=== PATIENT | female | born 1990 | race American Indian/Alaskan Native ===

== ENCOUNTER 2016-07-17 06:53 | Emergency (ER) | payer MEDICAID ==
[2016-07-17 07:01] VITALS: RESP 20; O2SAT 98
[2016-07-17] MEDS ORDERED: Naproxen 550 mg Tab PO STA (07:24)
[2016-07-17] MEDS ORDERED: Naproxen 550 mg Tab PO ONE (07:28)
--- NOTE | 2016-07-17 07:51 | C.PDOC ---
History Of Present Illness 25 y/o female presents to the ED complaining of left shoulder pain since yesterday. She reports a "popping sensation" with movement and states the pain also worsens with movement. 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 However she denies heavy lifting. She also denies falls/injury, chest pain, shortness of breath, rash, fever, sensory changes. Patient has not taken anything for pain yet. Time Seen by Provider: 07/17/16 07:13 Chief Complaint (Nursing): Upper Extremity Problem/Injury History Per: Patient History/Exam Limitations: no limitations Onset/Duration Of Symptoms: Days (1), Persistent Current Symptoms Are (Timing): Still Present Quality: "Pain" Severity: Mild Exacerbating Factor(s): Movement Past Medical History Reviewed: Historical Data, Nursing Documentation, Vital Signs Vital Signs: Last Vital Signs Temp 97.5 F L 07/17/16 08:02 Pulse 78 07/17/16 08:02 Resp 20 07/17/16 08:02 BP 135/80 07/17/16 08:02 Pulse Ox 98 07/17/16 09:22 - Medical History PMH: Anxiety, Bipolar Disorder, Depression, Diabetes Surgical History: No Surg Hx - [facility] Procedures INJECT/INFUSE NEC (12/30/13) Family History: States: Diabetes (Grandmother) - Social History Hx Tobacco Use: No Hx Alcohol Use: No Hx Substance Use: No - Immunization History Hx Tetanus Toxoid Vaccination: No Hx Influenza Vaccination: No Hx Pneumococcal Vaccination: No Review Of Systems Except As Marked, All Systems Reviewed And Found Negative. Constitutional: Negative for: Fever, Sweats Cardiovascular: Negative for: Chest Pain Respiratory: Negative for: Shortness of Breath Gastrointestinal: Negative for: Nausea Musculoskeletal: Positive for: Shoulder Pain (left) Skin: Negative for: Rash Neurological: Negative for: Weakness, Numbness Physical Exam - Physical Exam Appears: Well, Non-toxic, No Acute Distress, Other (comfortable) Skin: Normal Color, Warm, Dry, No Rash, No Ecchymosis Head: Normacephalic Oral Mucosa: Moist Neck: Normal ROM, No Other (tenderness) Chest: Symmetrical Cardiovascular: Rhythm Regular Respiratory: Normal Breath Sounds, No Rales, No Rhonchi, No Wheezing Back: Normal Inspection, No Other (tenderness) Extremity: Normal ROM, Tenderness (mild TTP at left humeral head and left anterior shoulder), Capillary Refill (< 2 seconds all digits), No Deformity, No Swelling Pulses: Left Radial: Normal, Right Radial: Normal Neurological/Psych: Oriented x3 Gait: Steady ED Course And Treatment O2 Sat by Pulse Oximetry: 98 (ra) Pulse Ox Interpretation: Normal - Other Rad X-Ray, Left Shoulder X-Ray: Interpreted by Me, Viewed By Me Interpretation: no fractures or dislocations Progress Note: Left Shoulder X-Ray ordered and reviewed. Patient given PO Naprosyn for pain. Xray of shoulder (-) for fractures/dislocations. Patint placed in shoulder sling, and instructed to follow up with orthopedics within 1 week for further evaluation. Rx for Naprosyn given. She understands she should return to ED if symptoms worsen. Reevaluation Time: 07:55 Reassessment Condition: Improved (Patient reports improvement of pain.) Disposition Counseled Patient/Family Regarding: Studies Performed, Diagnosis, Need For Followup, Rx Given - Disposition Referrals: Sravani Hays MD [Staff Provider] - [facility] [Outside] Disposition: HOME/ ROUTINE Disposition Time: 07:55 Condition: STABLE Additional Instructions: FOLLOW UP WITH ORTHOPEDICS WITHIN 1 WEEK USE MEDICATION FOR PAIN NEEDED REST SHOULDER WHEN POSSIBLE RETURN TO ER IF SYMPTOMS WORSEN Instructions: Shoulder Sprain (ED) Forms: Work Excuse Print Language: HUNGARIAN - Clinical Impression Clinical Impression: Shoulder pain, left, Soft tissue injury of shoulder - Scribe Statement The provider has reviewed the documentation as recorded by the Scribe (Shaneka Ashley) Provider Attestation: All medical record entries made by the Scribe were at my direction and personally dictated by me. I have reviewed the chart and agree that the record accurately reflects my personal performance of the history, physical exam, medical decision making, and the department course for this patient. I have also personally directed, reviewed, and agree with the discharge instructions and disposition.
[2016-07-17 08:03] VITALS: BP 135/80; PULSE 78; TEMP 97.5
--- NOTE | 2016-07-17 11:18 | RAD ---
PROCEDURE: Radiographs of the Left Shoulder HISTORY: left shoulder pain COMPARISON: None available. FINDINGS: BONES: No acute displaced fracture. The distal clavicle and underlying ribs appear intact. JOINTS: No acute dislocation. SOFT TISSUES: Soft tissues appear unremarkable. No evidence of radiopaque foreign body. IMPRESSION: No acute displaced fracture or dislocation evident. If symptoms persist or if there is continued clinical concern, x-ray follow-up in 7-10 days should be considered.
== END 2016-07-17 08:02 | disposition home or self-care (01) ==
LOC: C.ER 06:53
DX: S49.92XA Unspecified injury of left shoulder and upper arm, initial encounter (principal); X50.3XXA Overexertion from repetitive movements, initial encounter; Y93.89 Activity, other specified; Y92.89 Other specified places as the place of occurrence of the external cause

== ENCOUNTER 2016-07-22 13:44 | Emergency (ER) | payer MEDICAID ==
[2016-07-22 13:53] VITALS: RESP 20
--- NOTE | 2016-07-22 15:02 | C.PDOC ---
History Of Present Illness 25 y/o female presents to ED with complaints of fever, body aches, nausea, and diarrhea since yesterday. Patient reports 3 episodes of watery diarrhea this morning. Patient also reports persistent cough. Denies headache, dizziness, SOB , vomiting, recent travel, or sick contacts. Time Seen by Provider: 07/22/16 14:20 Chief Complaint (Nursing): Flu-like Symptoms History Per: Patient History/Exam Limitations: no limitations Onset/Duration Of Symptoms: Days Current Symptoms Are (Timing): Still Present Location Of Pain: Diffuse Myalgias Sick Contacts (Context): None Associated Symptoms: Fever, Cough, Myalgias, Nausea, Diarrhea. denies: Chills, Neck Pain, Vomiting Ear Symptoms: Bilateral: None Recent travel outside of the [place]: No Past Medical History Reviewed: Historical Data, Nursing Documentation, Vital Signs Vital Signs: Last Vital Signs Temp 100.8 F H 07/22/16 13:52 Pulse 114 H 07/22/16 13:52 Resp 20 07/22/16 13:52 BP 127/77 07/22/16 13:52 Pulse Ox 100 07/22/16 15:06 - Medical History PMH: Anxiety, Bipolar Disorder, Depression, Diabetes - [facility] Procedures INJECT/INFUSE NEC (12/30/13) Family History: States: Diabetes (Grandmother) - Social History Hx Tobacco Use: No Hx Alcohol Use: No Hx Substance Use: No - Immunization History Hx Tetanus Toxoid Vaccination: No Hx Influenza Vaccination: No Hx Pneumococcal Vaccination: No Review Of Systems Except As Marked, All Systems Reviewed And Found Negative. Constitutional: Positive for: Fever, Malaise. Negative for: Chills ENT: Negative for: Throat Pain Respiratory: Positive for: Cough Gastrointestinal: Positive for: Nausea, Diarrhea. Negative for: Vomiting, Abdominal Pain Musculoskeletal: Negative for: Neck Pain Skin: Negative for: Rash Neurological: Negative for: Headache, Dizziness Physical Exam - Physical Exam Appears: Non-toxic, No Acute Distress Skin: Normal Color, Warm, Dry Head: Atraumatic, Normacephalic Eye(s): bilateral: Normal Inspection, PERRL, EOMI Ear(s): Bilateral: Normal Nose: Normal Oral Mucosa: Moist Throat: Normal, No Erythema, No Exudate, No Drooling Neck: Supple Chest: Symmetrical Cardiovascular: Rhythm Regular, No Murmur Respiratory: Normal Breath Sounds, No Rales, No Rhonchi, No Wheezing Gastrointestinal/Abdominal: Soft, No Tenderness, No Guarding, No Rebound Back: Normal Inspection Extremity: Normal ROM, Capillary Refill (< 2 sec. ) Neurological/Psych: Oriented x3, Normal Speech, Normal Cognition ED Course And Treatment O2 Sat by Pulse Oximetry: 100 (RA) Pulse Ox Interpretation: Normal Progress Note: Treated with Motrin and Prednisone. Flu swab test ordered and reviewed. On reassessment, patient is resting comfortably, and is in no acute distress. Patient instructed to follow up with clinic/PMD within 1-2 days. Advised to taked medications as directed. Disposition - Disposition Referrals: [facility] [Outside] Disposition: HOME/ ROUTINE Disposition Time: 15:39 Condition: GOOD Additional Instructions: Follow up with the medical doctor within 1-2 days. Return if worsened. 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 - Scribe Statement The provider has reviewed the documentation as recorded by the Yan Mcduffie Provider Scribe Attestation: All medical record entries made by the Scribe were at my direction and personally dictated by me. I have reviewed the chart and agree that the record accurately reflects my personal performance of the history, physical exam, medical decision making, and the department course for this patient. I have also personally directed, reviewed, and agree with the discharge instructions and disposition.
[2016-07-22 15:57] VITALS: BP 111/76; PULSE 127; TEMP 99.7
[2016-07-23 23:18] VITALS: O2SAT 100
== END 2016-07-22 15:56 | disposition home or self-care (01) ==
LOC: C.ER 13:44
DX: J11.1 Influenza due to unidentified influenza virus with other respiratory manifestations (principal)

== ENCOUNTER 2016-08-17 13:40 | Emergency (ER) | payer MEDICAID ==
[2016-08-17 14:02] VITALS: TEMP 98.5; O2SAT 100
[2016-08-17] MEDS ORDERED: (Novolin R) Insulin Human Regular 100 units/ml vial SC STA (14:25)
[2016-08-17] MEDS ORDERED: Sodium Chloride 0.9% 1,000 ML IV ONE (14:25)
[2016-08-17 14:40] LABS: BASO % 1.1 % (0.0-2.0); EOS # 0.1 K/uL (0.0-0.7); EOS % 1.8 % (0.0-4.0); HEMATOCRIT 39.4 % (34.0-47.0); LYMPH # 1.5 K/uL (1.0-4.3); LYMPH % 35.4 % (20.0-40.0); MEAN CELL VOLUME 88.7 fL (81.0-99.0); MEAN CORPUSCULAR HEMOGLOBIN 30.7 pg (27.0-31.0); MEAN CORPUSCULAR HGB CONC 34.6 g/dL (33.0-37.0); MEAN PLATELET VOLUME 9.6 fL (7.2-11.7); MONO # 0.3 K/uL (0.0-0.8); MONO % 6.8 % (0.0-10.0); NRBC % 0.1 % (0.0-2.0); RED CELL DISTRIBUTION WIDTH 13.2 % (11.5-14.5); WHITE BLOOD COUNT 4.3 K/uL (4.8-10.8)
[2016-08-17 14:52] LABS: CHLORIDE 94 mmol/L (98-107)
[2016-08-17 14:53] LABS: POTASSIUM 3.8 mmol/L (3.6-5.2); SODIUM 134 mmol/L (132-148)
[2016-08-17 14:54] LABS: BILIRUBIN,TOTAL 0.9 mg/dL (0.2-1.3); GFR AFRICAN-AMERICAN > 60
[2016-08-17 14:55] LABS: ALB/GLOB RATIO 1.5 (1.0-2.1); ALKALINE PHOSPHATASE 99 U/L (38-126); ALT/SGPT 26 U/L (9-52); AST/SGOT 15 U/L (14-36); BLOOD UREA NITROGEN 6 mg/dL (7-17); CALCIUM 9.3 mg/dl (8.6-10.4); CARBON DIOXIDE 24 mmol/L (22-30); GLUCOSE,RANDOM 388 mg/dL (65-105); TOTAL PROTEIN 7.4 g/dL (6.3-8.3)
[2016-08-17 14:56] LABS: RBC URINE 2 /hpf (0-3); URINE BILIRUBIN NEGATIVE (NEGATIVE); URINE BLOOD NEGATIVE (NEGATIVE); URINE COLOR Yellow (YELLOW); URINE GLUCOSE (UA) 3+ mg/dL (Normal); URINE KETONE 2+ mg/dL (NEGATIVE); URINE LEUKOCYTE ESTERASE NEG Leu/uL (Negative); URINE PROTEIN NEGATIVE (NEGATIVE); URINE UROBILINOGEN NORMAL mg/dL (0.2-1.0); WBC URINE 3 /hpf (0-5)
[2016-08-17 16:05] VITALS: BP 120/73
--- NOTE | 2016-08-17 16:27 | C.PDOC ---
History Of Present Illness 26 year old patient, with a past medical history of anxiety, bipolar disorder, depression, and diabetes, presents to the ED complaining of increased thirst, urinary frequency and blurry vision for the past several days. Patient states she feels more tired than usual. She was taking insulin for her diabetes. For the past several months, her PMD told her to stop taking Insulin and didn't start her on any new medications. Patient reports she has not checked her blood pressure since she stopped taking insulin. She visited her PMD yesterday and only had blood work done. Patient denies chest pain, shortness of breath, dysuria, or fever. Time Seen by Provider: 08/17/16 14:17 Chief Complaint (Nursing): Dizziness/Lightheaded History Per: Patient History/Exam Limitations: no limitations Onset/Duration Of Symptoms: Days (several) Current Symptoms Are (Timing): Still Present Severity: Mild Pain Scale Rating Of: 3 Current Diabetic Medications: None Causative (Exacerbating) Factor(s): Other Associated Infectious Symptoms: Urinary Frequency Recent travel outside of the [place]: No Past Medical History Reviewed: Historical Data, Nursing Documentation, Vital Signs Vital Signs: Last Vital Signs Temp 98.5 F 08/17/16 16:45 Pulse 71 08/17/16 16:45 Resp 18 08/17/16 16:45 BP 120/73 08/17/16 16:45 Pulse Ox 100 08/17/16 17:53 - Medical History PMH: Anxiety, Bipolar Disorder, Depression, Diabetes - [facility] Procedures INJECT/INFUSE NEC (12/30/13) Family History: States: Diabetes (Grandmother) - Social History Hx Tobacco Use: No Hx Alcohol Use: No Hx Substance Use: No - Immunization History Hx Tetanus Toxoid Vaccination: No Hx Influenza Vaccination: No Hx Pneumococcal Vaccination: No Review Of Systems Except As Marked, All Systems Reviewed And Found Negative. Constitutional: Negative for: Fever Eyes: Positive for: Vision Change (blurry) ENT: Positive for: Other (increased thirst) Cardiovascular: Negative for: Chest Pain Respiratory: Negative for: Shortness of Breath Genitourinary: Positive for: Frequency. Negative for: Dysuria Physical Exam - Physical Exam Appears: Non-toxic, No Acute Distress Skin: Warm, Dry Head: Atraumatic, Normacephalic Eye(s): bilateral: Normal Inspection, EOMI Oral Mucosa: Moist Neck: Normal ROM, Supple Chest: Symmetrical Cardiovascular: Rhythm Regular Respiratory: Normal Breath Sounds, No Rales, No Rhonchi, No Wheezing Gastrointestinal/Abdominal: Soft, No Tenderness Back: Normal Inspection, No CVA Tenderness Extremity: Normal ROM Neurological/Psych: Oriented x3, Normal Motor, Normal Sensation Gait: Steady ED Course And Treatment - Laboratory Results Result Diagrams: 08/17/16 14:34 08/17/16 14:34 O2 Sat by Pulse Oximetry: 100 (room air) Pulse Ox Interpretation: Normal Medical Decision Making Medical Decision Making: Plan: * Labs * Novolin, IV fluids, Metformin * Reassess and disposition Progress: ketones (-) glu only ~380 down to ~280 post tx no indication for admission will start metforman and pt will see her PCP this wk for adjustment of meds Disposition Counseled Patient/Family Regarding: Studies Performed, Diagnosis, Need For Followup - Disposition Referrals: Love Thorne MD [Medical Doctor] - Disposition: HOME/ ROUTINE Disposition Time: 16:27 Condition: GOOD Prescriptions: Blood-Glucose Meter [Onetouch Ultramini] 1 each MC DIAL PRN #1 kit PRN Reason: .xx Lancets [Onetouch Lancets] 1 each MC DAILY #100 each Metformin HCl [Glucophage] 1 tab PO BID #60 tablet Instructions: Diabetic Hyperglycemia (ED) Forms: Work Excuse - Clinical Impression Clinical Impression: Diabetes mellitus, Hyperglycemia - Scribe Statement The provider has reviewed the documentation as recorded by the Scribaustin Goodrich Provider Attestation: All medical record entries made by the Scribe were at my direction and personally dictated by me. I have reviewed the chart and agree that the record accurately reflects my personal performance of the history, physical exam, medical decision making, and the department course for this patient. I have also personally directed, reviewed, and agree with the discharge instructions and disposition.
[2016-08-17 16:47] VITALS: PULSE 71; RESP 18
== END 2016-08-17 16:44 | disposition home or self-care (01) ==
LOC: C.ER 13:40
DX: E11.65 Type 2 diabetes mellitus with hyperglycemia (principal)
CPT/HCPCS: 80053; 81001; 82009; 82948; 84703; 85025; 96360; 96372; 99285; J7040

== ENCOUNTER 2016-09-19 09:34 | Emergency (ER) | payer MEDICAID ==
[2016-09-19 09:34] VITALS: BMI 37.7
[2016-09-19 09:46] VITALS: BP 120/81; PULSE 74; RESP 19; TEMP 97.9; O2SAT 100
--- NOTE | 2016-09-19 10:28 | C.PDOC ---
History Of Present Illness CC: "vaginal discharge:" 26 year old female with PMHx of uncontrolled DM, HTN presents to the ED with 3 day history of vaginal discharge. Discharge is described as white, non bloody, non odorous. Admits to vaginal itching. This is the first time this has happened. Admits she is sexually active with one partner. Last encounter 3 weeks ago. FDLMP 09/05/16. Denies abdominal pain, nausea, vomiting, fevers, chills, pelvic pain, back pain. Admits to recent hospitalization 3 weeks ago where she was treated with antibiotics for a "gall bladder problem" and was also evaluated for hyperglycemia. She follows with her PMD Dr. Eden Thorne and sees a global cmo. Last pap smear was Feb 2017 which was normal. (Natalia Agarwal) History Per: Patient History/Exam Limitations: no limitations Onset/Duration Of Symptoms: Days Current Symptoms Are (Timing): Still Present Severity: None Pain Scale Rating Of: 0 Time Seen by Provider: 09/19/16 09:45 Chief Complaint (Nursing): Female Genitourinary Past Medical History - Medical History PMH: Anxiety, Bipolar Disorder, Depression, Diabetes, HTN Denies: Chronic Kidney Disease Family History: States: Diabetes (Grandmother) - Social History Hx Tobacco Use: No Hx Alcohol Use: No Hx Substance Use: No - Immunization History Hx Tetanus Toxoid Vaccination: No Hx Influenza Vaccination: No Hx Pneumococcal Vaccination: No Review Of Systems Constitutional: Negative for: Fever, Chills Cardiovascular: Negative for: Chest Pain, Palpitations Respiratory: Negative for: Cough, Shortness of Breath Gastrointestinal: Negative for: Nausea, Vomiting, Abdominal Pain, Constipation Genitourinary: Positive for: Vaginal Discharge. Negative for: Dysuria, Frequency, Incontinence, Hematuria, Vaginal Bleeding, Pelvic Pain, Rash Musculoskeletal: Negative for: Back Pain Skin: Negative for: Rash, Lesions Physical Exam - Physical Exam Appears: No Acute Distress Skin: Normal Color, Warm, Dry Head: No Atraumatic, No Normacephalic Neck: Normal Chest: Symmetrical Cardiovascular: Rhythm Regular Respiratory: Normal Breath Sounds Gastrointestinal/Abdominal: Normal Exam, Soft, No Tenderness, No Distention Back: Normal Inspection, No CVA Tenderness, No Decreased ROM Pelvic: Normal External Exam, Normal Speculum Exam, No Vaginal Bleeding, Vaginal Discharge (white, thick, cottage cheese like ), No Cervical Motion Tenderness, No Cervix Open, No Adnexal Tenderness Extremity: No Pedal Edema Extremity: Bilateral: Atraumatic, No Pedal Edema Neurological/Psych: Oriented x3, Normal Speech Disoriented To: Person, Place, Time, Situation Gait: Steady ED Course And Treatment O2 Sat by Pulse Oximetry: 100 Medical Decision Making Medical Decision Makin26 year old female with PMHx of uncontrolled DM, HTN with white discharge on speculum exam suggestive of Vaginal Candidiasis. Patient given Diflucan 150 mg PO one time dose. Patient instructed to follow up with her primary doctor within 2-3 days of ED visit. Instructed patient to return for worsening of symptoms, pain, fevers, chills, nausea, vomiting. (Natalia Agarwal) Seen and examined with resident. 26 y/o F p/w vaginal discharge. White thick discharge on exam. Treated with Diflucan. (Tom Patricio) Disposition Counseled Patient/Family Regarding: Diagnosis, Need For Followup - Disposition Disposition Time: 10:49 - POA Present On Arrival: None - Disposition Referrals: Love Thorne MD [Medical Doctor] - Disposition: HOME/ ROUTINE Condition: STABLE Instructions: Vulvovaginal Candidiasis (ED) Forms: General Discharge Instructions - Clinical Impression Clinical Impression: Vaginal candidiasis
== END 2016-09-19 11:38 | disposition home or self-care (01) ==
LOC: C.ER 09:34
DX: B37.3 Candidiasis of vulva and vagina (principal)

== ENCOUNTER 2016-09-25 10:05 | Observation (INO) | payer MEDICAID ==
[2016-09-25 10:05] VITALS: BMI 37.7
[2016-09-25] MEDS ORDERED: Sodium Chloride 0.9% 1,000 ML IV ONE ×2 (10:30→12:05)
--- NOTE | 2016-09-25 10:35 | C.PDOC ---
History Of Present Illness 26 y/o female presents to ED with c/o right sided abdominal pain since 03:30 today. Patient states pain initially started in RUQ but now radiating to lower quadrant. Also reports nausea, vomiting, and diarrhea. Notes LMP was 09/08. Denies fever, chills, urinary symptoms, back pain, or other complaints. Patient also notes history of gall stones. Time Seen by Provider: 09/25/16 10:26 Chief Complaint (Nursing): Abdominal Pain History Per: Patient History/Exam Limitations: no limitations Onset/Duration Of Symptoms: Hrs Current Symptoms Are (Timing): Still Present Location Of Pain/Discomfort: RUQ, RLQ Radiation Of Pain To:: None Quality Of Discomfort: "Pain" Associated Symptoms: Nausea, Vomiting, Diarrhea. denies: Fever, Chills, Back Pain, Urinary Symptoms Recent travel outside of the [place]: No Abnormal Vaginal Bleeding: No Past Medical History Reviewed: Historical Data, Nursing Documentation, Vital Signs Vital Signs: Last Vital Signs Temp 97.8 F 09/25/16 17:37 Pulse 71 09/25/16 17:37 Resp 18 09/25/16 17:37 BP 127/79 09/25/16 17:37 Pulse Ox 100 09/25/16 17:37 - Medical History PMH: Anxiety, Bipolar Disorder, Depression, Diabetes, HTN - [facility] Procedures INJECT/INFUSE NEC (12/30/13) Family History: States: Diabetes (Grandmother) - Social History Hx Tobacco Use: No Hx Alcohol Use: No Hx Substance Use: No - Immunization History Hx Tetanus Toxoid Vaccination: No Hx Influenza Vaccination: No Hx Pneumococcal Vaccination: No Review Of Systems Except As Marked, All Systems Reviewed And Found Negative. Constitutional: Negative for: Fever, Chills Respiratory: Negative for: Cough, Shortness of Breath, Wheezing Gastrointestinal: Positive for: Nausea, Vomiting, Abdominal Pain, Diarrhea Genitourinary: Negative for: Dysuria Skin: Negative for: Rash Physical Exam - Physical Exam Appears: Non-toxic, No Acute Distress Skin: Normal Color, Warm, Dry Head: Atraumatic, Normacephalic Oral Mucosa: Moist Chest: Symmetrical Cardiovascular: Rhythm Regular, No Murmur Respiratory: Normal Breath Sounds, No Rales, No Rhonchi, No Wheezing Gastrointestinal/Abdominal: Soft, Tenderness (RUQ, RLQ), No Guarding, No Rebound , Other (obese) Back: Normal Inspection Extremity: Normal ROM, Capillary Refill (< 2 sec. ) Neurological/Psych: Oriented x3, Normal Speech, Normal Cognition ED Course And Treatment - Laboratory Results Result Diagrams: 09/25/16 10:48 09/25/16 10:48 O2 Sat by Pulse Oximetry: 100 (RA) Pulse Ox Interpretation: Normal - CT Scan/US Pelvic/TV Ultrasound Other Rad Studies (CT/US): Read By Radiologist, Radiology Report Reviewed CT/US Interpretation: HISTORY: RLQ pain, unable to visualize appy, complex cyst. COMPARISON: No prior ultrasound available for direct comparison. CT of the abdomen and pelvis with IV contrast performed 09/25/16. TECHNIQUE: Real- time transabdominal pelvic ultrasound was performed. In addition a transvaginal pelvic ultrasound was necessary to better depict pelvic anatomy. FINDINGS: UTERUS: Measures 9.6 x 4.8 x 5.9 cm. Anteverted. ENDOMETRIUM: Measures 1 cm in diameter. CERVIX: No cervical abnormality identified. RIGHT OVARY: Measures 4.3 x 3.5 x 4.0 cm. Blood flow is demonstrated. 2.6 x 2.2 x 3.1 cm hypoechoic right ovarian lesion, likely cyst. LEFT OVARY: Measures 3.2 x 2.2 x 2.9 cm. Blood flow is demonstrated. FREE FLUID: Small to moderate pelvic free fluid in the cul-de-sac. OTHER FINDINGS: None. IMPRESSION: 3.1 cm hypoechoic right ovarian lesion, likely cyst. Correlate clinically and recommend 6 week ultrasound follow-up to assess for resolution. Small to moderate pelvic free fluid in the cul-de-sac. Medical Decision Making Medical Decision Making: Plan: Toradol, Zofran, IV fluids. Labs ordered. Progress: ED OBSERVATION Discharge: Yes Date of observation admission: 09/25/16 Time of observation admission: 10:30 - Observation admission statement Patient is being placed in observation because:: Right sided abdominal pain - Goals of Observation Goals of observation are:: IV hydration, pain management, labs and CT - Progress Note Progress Note: 09/25/16 11:05 Labs reviewed, no acute findings, CT 09/25/16 12:05 Patient continues to complain of pain, additional IVF and Morphine ordered 09/25/16 14:44 CT shows no visualized appendix and abnormal Radiologist recommend pelvic US 09/25/16 17:12 Ultrasound shows 3.1 cm hypoechoic right ovarian lesion, likely cyst. Correlate clinically and recommend 6 week ultrasound follow-up to assess for resolution. Small to moderate pelvic free fluid in the cul-de-sac. 09/25/16 17:15 Upon reevaluation, patient reports feeling better, pain has completely resolved. Patient has no fever and stable vital signs. Abdomen is soft without guarding. I discussed results and provided copy or report. 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 - Scribe Statement The provider has reviewed the documentation as recorded by the Dejaibaustin Mcduffie All medical record entries made by the Dejaibaustin were at my direction and personally dictated by me. I have reviewed the chart and agree that the record accurately reflects my personal performance of the history, physical exam, medical decision making, and the department course for this patient. I have also personally directed, reviewed, and agree with the discharge instructions and disposition.
[2016-09-25] MEDS ORDERED: Sodium Chloride 0.9% 1,000 ML ONE ×2 (10:47→12:36)
[2016-09-25 11:15] LABS: BASO % 0.7 % (0.0-2.0); EOS # 0.1 K/uL (0.0-0.7); EOS % 1.2 % (0.0-4.0); HEMATOCRIT 37.8 % (34.0-47.0); LYMPH # 2.1 K/uL (1.0-4.3); LYMPH % 37.9 % (20.0-40.0); MEAN CELL VOLUME 89.5 fL (81.0-99.0); MEAN CORPUSCULAR HEMOGLOBIN 29.5 pg (27.0-31.0); MEAN CORPUSCULAR HGB CONC 32.9 g/dL (33.0-37.0); MEAN PLATELET VOLUME 9.6 fL (7.2-11.7); MONO # 0.5 K/uL (0.0-0.8); MONO % 8.7 % (0.0-10.0); RED CELL DISTRIBUTION WIDTH 13.6 % (11.5-14.5); WHITE BLOOD COUNT 5.5 K/uL (4.8-10.8)
[2016-09-25 11:24] LABS: RBC URINE 2 /hpf (0-3); URINE BACTERIA RARE (<OCC); URINE BILIRUBIN NEGATIVE (NEGATIVE); URINE BLOOD NEGATIVE (NEGATIVE); URINE COLOR Yellow (YELLOW); URINE GLUCOSE (UA) 2+ mg/dL (Normal); URINE KETONE NEGATIVE (NEGATIVE); URINE LEUKOCYTE ESTERASE TRACE Leu/uL (Negative); URINE PROTEIN NEGATIVE (NEGATIVE); URINE UROBILINOGEN NORMAL mg/dL (0.2-1.0); WBC URINE 2 /hpf (0-5)
[2016-09-25 11:32] LABS: CHLORIDE 101 mmol/L (98-107)
[2016-09-25 11:33] LABS: POTASSIUM 3.7 mmol/L (3.6-5.2); SODIUM 134 mmol/L (132-148)
[2016-09-25 11:35] LABS: ALB/GLOB RATIO 1.4 (1.0-2.1); ALKALINE PHOSPHATASE 84 U/L (38-126); ALT/SGPT 27 U/L (9-52); AST/SGOT 11 U/L (14-36); BILIRUBIN,TOTAL 0.5 mg/dL (0.2-1.3); BLOOD UREA NITROGEN 8 mg/dL (7-17); CARBON DIOXIDE 23 mmol/L (22-30); GFR AFRICAN-AMERICAN > 60; GLUCOSE,RANDOM 200 mg/dL (65-105); TOTAL PROTEIN 6.7 g/dL (6.3-8.3)
[2016-09-25 11:36] LABS: CALCIUM 8.4 mg/dl (8.6-10.4)
[2016-09-25] MEDS ORDERED: Morphine 4 MG/ML VIAL ONE (12:36)
[2016-09-25] MEDS ORDERED: Iodixanol 320 MG/ML 100 ML BOTTLE IV ONE (13:02)
[2016-09-25 14:02] VITALS: RESP 18; O2SAT 100
--- NOTE | 2016-09-25 15:04 | CT ---
PROCEDURE: CT abdomen and pelvis dated 09/25/2016. . HISTORY: right side abdominal pain COMPARISON: None. TECHNIQUE: Contiguous axial images of the abdomen pelvis performed of following intravenous injection of approximately 100 cc Visipaque 320 contrast material. Coronal and Sagittal reformats generated. Radiation dose: Total exam DLP = 1239.74 mGy-cm. This CT exam was performed using one or more of the following dose reduction techniques: Automated exposure control, adjustment of the mA and/or kV according to patient size, and/or use of iterative reconstruction technique. Total exam DLP = 1239.74 mGy-cm. FINDINGS: LOWER THORAX: Bases clear. No effusion or basilar pneumothorax. Tiny hiatal hernia with slight wall thickening of the treatment. Heart size is upper limits of normal. LIVER: Liver is borderline enlarged measuring 18 cm in dimension. Liver demonstrates relatively normal attenuation pattern without obvious mass collection or calcification. Portal and splenic veins are opacified. GALLBLADDER AND BILE DUCTS: Gallbladder is physiologically distended. No evidence of intraluminal gallbladder calculi. PANCREAS: Visualized portions the pancreas unremarkable. SPLEEN: Spleen exhibits normal size and attenuation pattern. ADRENALS: No adrenal lesions. KIDNEYS AND URETERS: Kidneys demonstrate symmetric nephrograms. No evidence of nephrolithiasis or hydronephrosis. BLADDER: Urinary bladder appears incompletely distended. No evidence of intraluminal urinary bladder calculi. REPRODUCTIVE: There is a small amount of fluid seen in the cul de sac and surrounding what may represent dated small right ovarian cyst that measures approximately 3.7 trans x 3.2 AP cc 2.9cm AP. Consider followup pelvic ultrasound for further evaluation clinically indicated. APPENDIX: Appendix is not seen with complete certainty however what is felt to represent the appendix is best seen on coronal image number [id number] and axial image number may [id number]. . No obvious periappendiceal inflammatory changes seen however correlation physical exam and laboratory values recommended. BOWEL: Unremarkable. No obstruction. No gross mural thickening. PERITONEUM: No gross free intraperitoneal air. There is fluid in the pelvis and surrounding the apparent right adnexal cyst. LYMPH NODES: Multiple small to medium sized lymph nodes present in the mid and right lower abdomen suggesting mesenteric adenitis. VASCULATURE: Unremarkable. No aortic aneurysm. BONES: No fracture or destructive lesion. OTHER FINDINGS: None. IMPRESSION: Right-sided adnexal cyst with a para ovarian pericystic fluid and small amount of free fluid in the cul de sac. Consider followup pelvic ultrasound if clinically indicated. There are several small to medium sized lymph nodes in the right mid and lower abdomen suggesting mesenteric adenitis. . The appendix is not seen with complete certainty however this felt to represent the appendix as detailed above appears grossly unremarkable without obvious periappendiceal inflammatory changes. . Liver is borderline/upper limits of normal in size. Findings discussed with TITUS Mendoza at approximately 2:40 p.m. with written down and read back verification.
--- NOTE | 2016-09-25 17:12 | US ---
HISTORY: RLQ pain, unable to visualize appy, complex cyst COMPARISON: No prior ultrasound available for direct comparison. CT of the abdomen and pelvis with IV contrast performed 09/25/16. TECHNIQUE: Real-time transabdominal pelvic ultrasound was performed. In addition a transvaginal pelvic ultrasound was necessary to better depict pelvic anatomy. FINDINGS: UTERUS: Measures 9.6 x 4.8 x 5.9 cm. Anteverted. ENDOMETRIUM: Measures 1 cm in diameter. CERVIX: No cervical abnormality identified. RIGHT OVARY: Measures 4.3 x 3.5 x 4.0 cm. Blood flow is demonstrated. 2.6 x 2.2 x 3.1 cm hypoechoic right ovarian lesion, likely cyst. LEFT OVARY: Measures 3.2 x 2.2 x 2.9 cm. Blood flow is demonstrated. FREE FLUID: Small to moderate pelvic free fluid in the cul-de-sac. OTHER FINDINGS: None. IMPRESSION: 3.1 cm hypoechoic right ovarian lesion, likely cyst. Correlate clinically and recommend 6 week ultrasound follow-up to assess for resolution. Small to moderate pelvic free fluid in the cul-de-sac.
[2016-09-25 17:38] VITALS: BP 127/79; PULSE 71; TEMP 97.8
== END 2016-09-25 17:17 | disposition home or self-care (01) ==
LOC: C.ER 10:05 → C.9OBSV 10:32
PROVIDERS: ADMIT Emergency Medicine; ATTEND Emergency Medicine
DX: I88.0 Nonspecific mesenteric lymphadenitis (principal); I10 Essential (primary) hypertension; F31.9 Bipolar disorder, unspecified; E11.9 Type 2 diabetes mellitus without complications; N83.201 Unspecified ovarian cyst, right side
CPT/HCPCS: 74177; 76830; 76856; 80053; 81001; 82948; 83690; 84703; 85025; 96360; 96374; G0378; J1885; J2270; J2405; J7040; Q9967

== ENCOUNTER 2016-10-18 10:50 | Emergency (ER) | payer MEDICAID ==
[2016-10-18 10:51] VITALS: BMI 37.7
[2016-10-18 11:08] VITALS: O2SAT 100
[2016-10-18] MEDS ORDERED: Sodium Chloride 0.9% 1,000 ML IV ONE (11:19)
[2016-10-18] MEDS ORDERED: Sodium Chloride 0.9% 1,000 ML ONE (11:32)
[2016-10-18 11:42] LABS: BASO % 0.6 % (0.0-2.0); LYMPH # 1.6 K/uL (1.0-4.3); MEAN CORPUSCULAR HEMOGLOBIN 29.6 pg (27.0-31.0); MEAN PLATELET VOLUME 10.2 fL (7.2-11.7); MONO # 0.4 K/uL (0.0-0.8); MONO % 8.9 % (0.0-10.0); NEUT # 2.2 K/uL (1.8-7.0); NEUT % 51.5 % (50.0-75.0); NRBC % 0.1 % (0.0-2.0); RBC 4.94 Mil/uL (3.80-5.20); RED CELL DISTRIBUTION WIDTH 13.5 % (11.5-14.5); WHITE BLOOD COUNT 4.3 K/uL (4.8-10.8)
[2016-10-18 11:43] LABS: HEMOGLOBIN 14.7 g/dL (11.0-16.0)
[2016-10-18 11:56] LABS: ALBUMIN 4.4 g/dL (3.5-5.0)
[2016-10-18 11:59] LABS: ALB/GLOB RATIO 1.3 (1.0-2.1); ALT/SGPT 21 U/L (9-52); AST/SGOT 17 U/L (14-36); BLOOD UREA NITROGEN 6 mg/dL (7-17); GFR AFRICAN-AMERICAN > 60; GFR NON-AFRICAN AMERICAN > 60
[2016-10-18 12:00] LABS: CALCIUM 9.6 mg/dl (8.6-10.4); LIPASE 24 U/L (23-300)
[2016-10-18 12:12] LABS: HCG,QUALITATIVE URINE NEGATIVE (NEGATIVE)
[2016-10-18] MEDS ORDERED: (Novolin R) Insulin Human Regular 100 units/ml vial IV ONE (12:15)
[2016-10-18 12:31] LABS: SQUAMOUS EPITHIAL 8 /hpf (0-5); URINE BACTERIA OCC (<OCC); URINE BILIRUBIN NEGATIVE (NEGATIVE); URINE BLOOD NEGATIVE (NEGATIVE); URINE CLARITY Hazy (Clear); URINE COLOR Yellow (YELLOW); URINE GLUCOSE (UA) 3+ mg/dL (Normal); URINE LEUKOCYTE ESTERASE 2+ Leu/uL (Negative); URINE NITRATE NEGATIVE (NEGATIVE); URINE PROTEIN NEGATIVE (NEGATIVE); URINE UROBILINOGEN NORMAL mg/dL (0.2-1.0)
[2016-10-18] MEDS ORDERED: (Novolin R) Insulin Human Regular 100 units/ml vial ONE (12:39)
--- NOTE | 2016-10-18 13:18 | C.PDOC ---
History Of Present Illness 26 year old female presents to the ED with complaints of consistent right sided abdominal pain with associated nausea and vomiting for three days. Patient notes diarrhea today. She has history of gallstones and diabetes and admits to not taking medication for the past few days and overall not feeling well. Time Seen by Provider: 10/18/16 11:12 Chief Complaint (Nursing): Abdominal Pain History Per: Patient History/Exam Limitations: no limitations Onset/Duration Of Symptoms: Hrs (diarrhea and high blood sugar ), Days (nausea, vomiting, right sided abdominal pain for 3 days) Current Symptoms Are (Timing): Still Present Location Of Pain/Discomfort: RUQ, RLQ Radiation Of Pain To:: None Quality Of Discomfort: "Pain" Associated Symptoms: Nausea, Vomiting, Diarrhea. denies: Fever, Chills Recent travel outside of the [place]: No Abnormal Vaginal Bleeding: No Past Medical History Reviewed: Historical Data, Nursing Documentation, Vital Signs Vital Signs: Last Vital Signs Temp 98.2 F 10/18/16 14:19 Pulse 78 10/18/16 14:19 Resp 16 10/18/16 14:19 BP 128/70 10/18/16 14:19 Pulse Ox 100 10/18/16 14:19 - Medical History PMH: Anxiety, Bipolar Disorder, Depression, Diabetes, HTN - [facility] Procedures INJECT/INFUSE NEC (12/30/13) Family History: States: Diabetes (Grandmother) - Social History Hx Tobacco Use: No Hx Alcohol Use: No Hx Substance Use: No - Immunization History Hx Tetanus Toxoid Vaccination: No Hx Influenza Vaccination: No Hx Pneumococcal Vaccination: No Review Of Systems Constitutional: Negative for: Fever, Chills Cardiovascular: Negative for: Chest Pain, Palpitations Respiratory: Negative for: Cough, Shortness of Breath Gastrointestinal: Positive for: Nausea, Vomiting, Abdominal Pain, Diarrhea Genitourinary: Negative for: Dysuria Musculoskeletal: Negative for: Back Pain Physical Exam - Physical Exam Appears: Non-toxic, No Acute Distress Skin: Warm, Dry Head: Atraumatic, Normacephalic Eye(s): bilateral: Normal Inspection, EOMI Nose: Normal Oral Mucosa: Moist Neck: Supple Chest: Symmetrical, No Deformity Cardiovascular: Rhythm Regular Respiratory: Normal Breath Sounds, No Accessory Muscle Use, No Rhonchi, No Wheezing Gastrointestinal/Abdominal: Soft, Tenderness (to RUQ), No Distention, No Guarding, Other (Negative McBurney's. Negative Beaulieu's ) Extremity: Normal ROM, No Tenderness Neurological/Psych: Oriented x3, Normal Speech Gait: Steady ED Course And Treatment - Laboratory Results Result Diagrams: 10/18/16 11:32 10/18/16 11:32 Lab Interpretation: Abnormal O2 Sat by Pulse Oximetry: 100 (room air ) Pulse Ox Interpretation: Normal - CT Scan/US US abdomen Other Rad Studies (CT/US): Read By Radiologist, Radiology Report Reviewed CT/US Interpretation: Accession No. : [id number]. Patient Name / ID : ROSALINO JADE / [id number]. Exam Date : 10/18/2016 13:19:09 ( Approved ). Study Comment : Sex / Age : F / 26Y. Creator : Jamaal Briscoe MD. Dictator : Jamaal Briscoe MD. Network Designer : [employer] Analyst : Jamaal Briscoe MD. Approver2 : Report Date : 10/18/2016 13:39:03. My Comment : . HISTORY: RUQ abd pain, h.o gallstones. COMPARISON: None. TECHNIQUE: Sonographic evaluation of the abdomen. FINDINGS: LIVER: Measures 13.1 cm. Hepatopedal blood flow. Fatty infiltration manifest ultrasonographically as increased echogenicity of the liver parenchyma. No mass. No intrahepatic bile duct dilatation. GALLBLADDER: Cholelithiasis. Negative study for gallbladder wall thickening, pericholecystic fluid, sonographic Beaulieu's sign. COMMON BILE DUCT: Measures 2.3 mm. No stones. No dilatation. PANCREAS: Unremarkable as visualized. No mass. No ductal dilatation. RIGHT KIDNEY: Measures 4.2 x 11cm. Normal echogenicity. No calculus, mass, or hydronephrosis. LEFT KIDNEY: Measures 5.3 x 10.5cm. Normal echogenicity. No calculus, mass, or hydronephrosis. SPLEEN: Normal in size and contour. No mass. AORTA: No aneurysmal dilatation. IVC: Unremarkable. OTHER FINDINGS: None. IMPRESSION : Cholelithiasis. No sonographic evidence of acute cholecystitis. Medical Decision Making Medical Decision Making: US showed gallstone without cholecystitis. Patient given IV fluids, toradol, Zofran, Pepcid and Novolin R. Accucheck improved Patient reports pain improved. Explained results to patient. She feels comfortable going home and will be discharged. Advise follow up with PCP and to take her DM medications. Also recommend gen surgery follow up Disposition Counseled Patient/Family Regarding: Diagnosis, Need For Followup, Rx Given - Disposition Referrals: Yahir Miller MD [Staff Provider] - Sofía Thorne MD [Staff Provider] - Disposition: HOME/ ROUTINE Disposition Time: 14:09 Condition: STABLE Additional Instructions: Follow up with your primary medical doctor or clinic in 2-5 days for further evaluation. Take medications as prescribed. Return to the emergency department at any time if symptoms persist or worsen. Prescriptions: Atropine/Hyoscyamine [] 1 tab PO Q8 #20 tab Instructions: Biliary Colic (ED), Gallstones (ED) - POA Present On Arrival: None - Clinical Impression Clinical Impression: Biliary colic, Cholelithiasis - PA / MANUFACTURING CLERK / Resident Statement MD/DO has reviewed & agrees with the documentation as recorded. - Scribe Statement The provider has reviewed the documentation as recorded by the Scribe Laura Reaves All medical record entries made by the Dejaibaustin were at my direction and personally dictated by me. I have reviewed the chart and agree that the record accurately reflects my personal performance of the history, physical exam, medical decision making, and the department course for this patient. I have also personally directed, reviewed, and agree with the discharge instructions and disposition.
--- NOTE | 2016-10-18 13:40 | US ---
HISTORY: RUQ abd pain, h.o gallstones COMPARISON: None. TECHNIQUE: Sonographic evaluation of the abdomen. FINDINGS: LIVER: Measures 13.1 cm. Hepatopedal blood flow. Fatty infiltration manifest ultrasonographically as increased echogenicity of the liver parenchyma. No mass. No intrahepatic bile duct dilatation. GALLBLADDER: Cholelithiasis. Negative study for gallbladder wall thickening, pericholecystic fluid, sonographic Beaulieu's sign. COMMON BILE DUCT: Measures 2.3 mm. No stones. No dilatation. PANCREAS: Unremarkable as visualized. No mass. No ductal dilatation. RIGHT KIDNEY: Measures 4.2 x 11cm. Normal echogenicity. No calculus, mass, or hydronephrosis. LEFT KIDNEY: Measures 5.3 x 10.5cm. Normal echogenicity. No calculus, mass, or hydronephrosis. SPLEEN: Normal in size and contour. No mass. AORTA: No aneurysmal dilatation. IVC: Unremarkable. OTHER FINDINGS: None. IMPRESSION: Cholelithiasis. No sonographic evidence of acute cholecystitis.
[2016-10-18 14:20] VITALS: BP 128/70; PULSE 78; RESP 16; TEMP 98.2
== END 2016-10-18 14:19 | disposition home or self-care (01) ==
LOC: C.ER 10:50
DX: K80.70 Calculus of gallbladder and bile duct without cholecystitis without obstruction (principal)
CPT/HCPCS: 76700; 80053; 81001; 82009; 82948; 83690; 84703; 85025; 96361; 96374; 96375; 99284; J1885; J2405; J7040

== ENCOUNTER 2017-01-05 15:50 | Emergency (ER) | payer MEDICAID ==
[2017-01-05 15:50] VITALS: BMI 37.7
[2017-01-05 16:11] VITALS: O2SAT 98
--- NOTE | 2017-01-05 16:18 | C.PDOC ---
History Of Present Illness 26 y/o female, whose past medical history includes HTN and DM, presents to the ED complaining of a sore throat for the past two days. Patient reports pain is worse when swallowing. Patient denies cough, fever, or sick contact. Time Seen by Provider: 01/05/17 16:09 Chief Complaint (Nursing): ENT Problem History Per: Patient History/Exam Limitations: None Onset/Duration Of Symptoms: Days (2 days) Current Symptoms Are (Timing): Still Present Quality (Mouth/Throat): Swelling Past Medical History Reviewed: Historical Data, Nursing Documentation, Vital Signs Vital Signs: Last Vital Signs Temp 98 F 01/05/17 16:25 Pulse 73 01/05/17 16:25 Resp 18 01/05/17 16:25 BP 118/65 01/05/17 16:25 Pulse Ox 98 01/05/17 17:34 - Medical History PMH: Anxiety, Bipolar Disorder, Depression, Diabetes, HTN Denies: Chronic Kidney Disease - [facility] Procedures INJECT/INFUSE NEC (12/30/13) Family History: States: Diabetes (Grandmother) - Social History Hx Tobacco Use: No Hx Alcohol Use: No Hx Substance Use: No - Immunization History Hx Tetanus Toxoid Vaccination: No Hx Influenza Vaccination: No Hx Pneumococcal Vaccination: No Review Of Systems Constitutional: Negative for: Fever ENT: Positive for: Nose Congestion, Throat Pain. Negative for: Ear Pain Cardiovascular: Negative for: Chest Pain Respiratory: Negative for: Cough, Shortness of Breath Gastrointestinal: Negative for: Abdominal Pain Skin: Negative for: Rash Neurological: Negative for: Headache Physical Exam - Physical Exam Appears: Well, Non-toxic, No Acute Distress Skin: Normal Color, Warm, Dry Head: Atraumatic, Normacephalic Eye(s): bilateral: Normal Inspection, EOMI Ear(s): Bilateral: Normal (no erythema) Nose: Normal Oral Mucosa: Moist Throat: Erythema (pharyngeal and bilateral tonsilar erythema ), No Exudate Neck: Normal ROM Lymphatic: No Adenopathy Chest: Symmetrical Cardiovascular: Rhythm Regular Respiratory: Normal Breath Sounds Extremity: Bilateral: Atraumatic Neurological/Psych: Oriented x3, Normal Speech Gait: Steady ED Course And Treatment O2 Sat by Pulse Oximetry: 98 (room air) Pulse Ox Interpretation: Normal Medical Decision Making Medical Decision Making: Impression: throat pain Plan: -- Amoxicillin Re-evaluation: Patient remained afebrile alert and oriented with stable vital signs during ER evaluation. Patient given follow up instructions. Instructed to return to ER if symptoms worsen or new symptoms arise. Disposition Counseled Patient/Family Regarding: Diagnosis, Need For Followup, Rx Given - Disposition Referrals: Love Thorne MD [Medical Doctor] - Disposition: HOME/ ROUTINE Disposition Time: 16:17 Condition: STABLE Additional Instructions: Take Tylenol or Motrin alternating every 4-6 hours for Fever 100.4F or higher. Rest and drink plenty of fluids to prevent dehydration. May also try lozenges or cepacol spary over the counter. Prescriptions: Amoxicillin [Amoxil 500 mg Cap] 500 mg PO BID #14 cap Instructions: Tonsillitis (ED) Forms: [facility] (Tanzanian) - POA Present On Arrival: None - Clinical Impression Clinical Impression: Tonsillitis - Scribe Statement The provider has reviewed the documentation as recorded by the Scribe 01/05/2017 Scribe Attestation: Kellen Kincaid MD Scribe Attestation: All medical record entries made by the Scribe were at my direction and personally dictated by me. I have reviewed the chart and agree that the record accurately reflects my personal performance of the history, physical exam, medical decision making, and the department course for this patient. I have also personally directed, reviewed, and agree with the discharge instructions and disposition.
[2017-01-05 16:25] VITALS: BP 118/65; PULSE 73; RESP 18; TEMP 98
== END 2017-01-05 16:27 | disposition home or self-care (01) ==
LOC: C.ER 15:50
DX: J03.90 Acute tonsillitis, unspecified (principal); I10 Essential (primary) hypertension; E11.9 Type 2 diabetes mellitus without complications

== ENCOUNTER 2017-04-03 08:20 | Emergency (ER) | payer MEDICAID ==
[2017-04-03 08:25] VITALS: BMI 35.4
[2017-04-03] MEDS ORDERED: Sodium Chloride 0.9% 1,000 ML IV ONE (10:02)
[2017-04-03] MEDS ORDERED: Sodium Chloride 0.9% 1,000 ML ONE (10:07)
[2017-04-03 10:40] LABS: RBC URINE 6 /hpf (0-3); URINE BILIRUBIN NEGATIVE (NEGATIVE); URINE COLOR Yellow (YELLOW); URINE GLUCOSE (UA) NORMAL (Normal); URINE KETONE TRACE mg/dL (NEGATIVE); URINE LEUKOCYTE ESTERASE 2+ Leu/uL (Negative); URINE PROTEIN NEGATIVE (NEGATIVE); URINE UROBILINOGEN NORMAL mg/dL (0.2-1.0); WBC URINE 17 /hpf (0-5)
[2017-04-03 10:48] LABS: URINE BLOOD TRACE (NEGATIVE)
--- NOTE | 2017-04-03 11:06 | RAD ---
PROCEDURE: CHEST RADIOGRAPH, 1 VIEW HISTORY: cough, fever COMPARISON: 04/10/2016 FINDINGS: LUNGS: Lung volumes are more shallow than before. Limiting evaluation of small patchy infiltrates at either lung base. The prior right infrahilar mild bronchovascular marking prominence is now less pronounced. T The appearance of the left costophrenic angle is indeterminate - trace left inferolateral pleural parenchymal pathology here versus summation of prominent soft tissues in this patient with large body habitus and large breast tissues are some considerations. Summation effects are favored PLEURA: No pneumothorax. No significant appearing pleural effusion noted CARDIOVASCULAR: Normal. OSSEOUS STRUCTURES: No significant abnormalities. VISUALIZED UPPER ABDOMEN: Normal. OTHER FINDINGS: None. IMPRESSION: Limited exam regarding assessment for potential pathology at the lung bases given the shallow lung volumes and large body habitus/ prominent breast soft tissues No mid or upper lobe traits noted
--- NOTE | 2017-04-03 11:13 | C.PDOC ---
History Of Present Illness 26 year old female presents to ED for evaluation of body aches, non-productive cough, headache, and nausea since yesterday. Pt reports 1-2 episodes of vomiting and diarrhea each yesterday. She denies sore throat, ear pain, dysuria /hematuria, or sick contacts. Time Seen by Provider: 04/03/17 08:30 Chief Complaint (Nursing): Flu-like Symptoms History Per: Patient History/Exam Limitations: no limitations Onset/Duration Of Symptoms: Days (1) Current Symptoms Are (Timing): Still Present Location Of Pain: Diffuse Myalgias Sick Contacts (Context): None Associated Symptoms: Cough, Myalgias, Nausea, Vomiting, Diarrhea. denies: Sore Throat, Sputum, Neck Pain Ear Symptoms: Bilateral: None Severity: Moderate Additional History Per: Patient Past Medical History Reviewed: Historical Data, Nursing Documentation, Vital Signs Vital Signs: Last Vital Signs Temp 98.4 F 04/03/17 12:52 Pulse 81 04/03/17 12:52 Resp 17 04/03/17 12:52 BP 133/79 04/03/17 12:52 Pulse Ox 97 04/03/17 12:52 - Medical History PMH: Anxiety, Bipolar Disorder, Depression, Diabetes, HTN - [facility] Procedures INJECT/INFUSE NEC (12/30/13) Family History: States: Diabetes (Grandmother) - Social History Hx Tobacco Use: No Hx Alcohol Use: No Hx Substance Use: No - Immunization History Hx Tetanus Toxoid Vaccination: No Hx Influenza Vaccination: No Hx Pneumococcal Vaccination: No Review Of Systems Except As Marked, All Systems Reviewed And Found Negative. Constitutional: Positive for: Fever, Malaise, Other (body aches) ENT: Negative for: Ear Pain, Nose Discharge, Nose Congestion, Throat Pain Cardiovascular: Negative for: Chest Pain, Palpitations Respiratory: Positive for: Cough. Negative for: Shortness of Breath, Sputum Gastrointestinal: Positive for: Nausea, Vomiting, Diarrhea. Negative for: Abdominal Pain Genitourinary: Negative for: Dysuria, Frequency, Hematuria Skin: Negative for: Rash Neurological: Positive for: Headache. Negative for: Dizziness Physical Exam - Physical Exam Appears: Well, Non-toxic, Other (in mild discomfort) Skin: Normal Color, Warm (warm to touch), Dry, No Rash Head: Atraumatic, Normacephalic Eye(s): bilateral: Normal Inspection Ear(s): Bilateral: Normal Nose: Normal Oral Mucosa: Moist Throat: Normal, No Erythema, No Exudate, No Drooling Neck: Normal ROM, Supple, Other (no meningismus) Cardiovascular: Rhythm Regular (tachycardic) Respiratory: Normal Breath Sounds, No Rales, No Rhonchi, No Wheezing, Other ( coughs occasionally) Gastrointestinal/Abdominal: Normal Exam, Bowel Sounds, Soft, No Tenderness Back: No CVA Tenderness Extremity: Normal ROM, No Pedal Edema Neurological/Psych: Oriented x3 ED Course And Treatment O2 Sat by Pulse Oximetry: 96 (RA) Pulse Ox Interpretation: Normal - Radiology CXR: Interpreted by Me, Viewed By Me CXR Interpretation: Yes: No Acute Disease. No: Infiltrates Progress Note: CXR, influenza swab, UA and Upreg ordered and reviewed. Patient was given PO tylenol. When reassessed, patient fever dropping ut she continues to have body aches and be tachycardic. IV NS bolus, IV toradol given. Reevaluation Time: 12:30 Reassessment Condition: Improved (On reassessment, patient is resting comfortably and states she feels much better. Vitals have improved, and patient is afebrile. UPreg, CXR and influenza swab neg. Patient denies dysuria /hematuria. Patient's symptoms likely due to viral syndrome. Rxs given for naprosyn, tessalon, zofran. She was instructed to drink plenty of fluids, get rest, and to follow up with PMD in 1-2 days. She understands she should return to ED if symptoms worsen.) Disposition Counseled Patient/Family Regarding: Studies Performed, Diagnosis, Need For Followup, Rx Given - Disposition Referrals: Love Thorne MD [Medical Doctor] - Disposition: HOME/ ROUTINE Disposition Time: 12:30 Condition: STABLE Additional Instructions: FOLLOW UP WITH YOUR DOCTOR IN 1-2 DAYS USE MEDICATIONS NEEDED DRINK PLENTY OF FLUIDS AND GET REST RETURN TO ER IF SYMPTOMS WORSEN Prescriptions: Benzonatate [Tessalon Perles] 100 mg PO BID PRN #15 sgl PRN Reason: Cough Naproxen 375 mg PO BID PRN #20 tablet PRN Reason: pain Ondansetron [Zofran Odt] 4 mg PO Q8 PRN #10 odt PRN Reason: Nausea/Vomiting Instructions: Viral Syndrome (ED) Forms: [facility] (Turkish), Work Excuse Print Language: BANGLADESHI - POA Present On Arrival: None - Clinical Impression Clinical Impression: Viral syndrome - Scribe Statement The provider has reviewed the documentation as recorded by the Scribe Job Goodrich All medical record entries made by the Scribe were at my direction and personally dictated by me. I have reviewed the chart and agree that the record accurately reflects my personal performance of the history, physical exam, medical decision making, and the department course for this patient. I have also personally directed, reviewed, and agree with the discharge instructions and disposition.
[2017-04-03 12:53] VITALS: BP 133/79; PULSE 81; RESP 17; TEMP 98.4
[2017-04-03 17:48] VITALS: O2SAT 96
== END 2017-04-03 12:56 | disposition home or self-care (01) ==
LOC: C.ER 08:20
DX: B34.9 Viral infection, unspecified (principal); E11.9 Type 2 diabetes mellitus without complications; I10 Essential (primary) hypertension
CPT/HCPCS: 71010; 81001; 84703; 87804; 96361; 96374; 99285; J1885; J7040

== ENCOUNTER 2017-04-12 22:11 | Emergency (ER) | payer MEDICAID ==
[2017-04-12 22:12] VITALS: BMI 35.4
[2017-04-12 22:20] VITALS: TEMP 99.2
[2017-04-12] MEDS ORDERED: Albuterol 0.083% Inhal Sol (2.5 mg/3 mL) UD ONE (22:41)
[2017-04-12] MEDS ORDERED: Albuterol 0.083% Inhal Sol (2.5 mg/3 mL) UD IH STA (23:03)
--- NOTE | 2017-04-12 23:55 | C.PDOC ---
History Of Present Illness 26 year old female presents to the ED c/o chest tightness and SOB. Patient was seen in the ED for a viral illness and d/c home with cough medicine, patient reports the medicine does not help with the symptoms. Patient denies fever, chills, nausea, vomit, diarrhea, sick contacts, recent travel. Time Seen by Provider: 04/12/17 22:32 Chief Complaint (Nursing): Cough, Cold, Congestion History Per: Patient History/Exam Limitations: no limitations Onset/Duration Of Symptoms: Days Current Symptoms Are (Timing): Still Present Sick Contacts (Context): None Recent travel outside of the [place]: No Additional History Per: Patient Past Medical History Reviewed: Historical Data, Nursing Documentation, Vital Signs Vital Signs: Last Vital Signs Temp 99.2 F 04/12/17 22:19 Pulse 74 04/13/17 00:13 Resp 16 04/13/17 00:13 BP 132/81 04/13/17 00:13 Pulse Ox 98 04/13/17 00:13 - Medical History PMH: Anxiety, Bipolar Disorder, Depression, Diabetes, HTN Denies: Chronic Kidney Disease Surgical History: No Surg Hx - [facility] Procedures INJECT/INFUSE NEC (12/30/13) Family History: States: Diabetes (Grandmother) - Social History Hx Tobacco Use: No Hx Alcohol Use: No Hx Substance Use: No - Immunization History Hx Tetanus Toxoid Vaccination: No Hx Influenza Vaccination: No Hx Pneumococcal Vaccination: No Review Of Systems Constitutional: Negative for: Fever, Chills Cardiovascular: Positive for: Chest Pain Respiratory: Positive for: Shortness of Breath Gastrointestinal: Negative for: Nausea, Vomiting, Abdominal Pain Musculoskeletal: Negative for: Neck Pain Skin: Negative for: Rash Neurological: Negative for: Weakness, Numbness, Headache Physical Exam - Physical Exam Appears: Non-toxic, No Acute Distress Skin: Normal Color, Warm, Dry Head: Atraumatic, Normacephalic Nose: No Discharge, No Deformity Oral Mucosa: Moist Throat: Normal, No Erythema, No Exudate Neck: Normal ROM, Supple Chest: Symmetrical Cardiovascular: Rhythm Regular, No Murmur Respiratory: Decreased Breath Sounds (minimal B/L), No Rales, No Rhonchi, Wheezing (expiratory) Gastrointestinal/Abdominal: Soft, No Tenderness Extremity: Normal ROM, No Pedal Edema, No Calf Tenderness, No Deformity, No Swelling Neurological/Psych: Oriented x3, Normal Speech Gait: Steady ED Course And Treatment O2 Sat by Pulse Oximetry: 100 (On RA) Pulse Ox Interpretation: Normal Progress Note: Plan: -Albuterol. -Prednisone PO. On reevaluation patient states she feel much better, in no distress. Disposition - Disposition Referrals: Love Thorne MD [Medical Doctor] - Disposition: HOME/ ROUTINE Disposition Time: 22:20 Condition: STABLE Additional Instructions: Please increase PO fluids Take meds as directed Return to ER if worse Prescriptions: Albuterol HFA [Ventolin HFA 90 mcg/actuation (8 g)] 2 puff IH [id number] #1 inhaler Azithromycin [Zithromax] 250 mg PO DAILY #6 tab predniSONE [Prednisone] 40 mg PO DAILY #8 tab Instructions: Acute Bronchitis (ED) Forms: [employer] (Croatian) - Clinical Impression Clinical Impression: Bronchitis - PA / CHIEF CRUISER / Resident Statement MD/DO has reviewed & agrees with the documentation as recorded. - Scribe Statement The provider has reviewed the documentation as recorded by the Scribe Jamel Sanchez All medical record entries made by the Scribe were at my direction and personally dictated by me. I have reviewed the chart and agree that the record accurately reflects my personal performance of the history, physical exam, medical decision making, and the department course for this patient. I have also personally directed, reviewed, and agree with the discharge instructions and disposition.
--- NOTE | 2017-04-12 23:57 | C.PDOC ---
Time Seen by Provider: 04/12/17 22:32 Chief Complaint (Nursing): Cough, Cold, Congestion Past Medical History Vital Signs: Last Vital Signs Temp 99.2 F 04/12/17 22:19 Pulse 84 04/12/17 22:19 Resp 20 04/12/17 22:19 BP 134/84 04/12/17 22:19 Pulse Ox 100 04/12/17 22:19 - Medical History PMH: Anxiety, Bipolar Disorder, Depression, Diabetes, HTN Denies: Chronic Kidney Disease - [facility] Procedures INJECT/INFUSE NEC (12/30/13) Family History: States: Diabetes (Grandmother) - Social History Hx Tobacco Use: No Hx Alcohol Use: No Hx Substance Use: No - Immunization History Hx Tetanus Toxoid Vaccination: No Hx Influenza Vaccination: No Hx Pneumococcal Vaccination: No ED Course And Treatment O2 Sat by Pulse Oximetry: 100 Disposition Counseled Patient/Family Regarding: Diagnosis, Need For Followup, Rx Given - Disposition Referrals: Love Thorne MD [Medical Doctor] - Disposition: HOME/ ROUTINE Disposition Time: 23:44 Condition: STABLE Additional Instructions: Please increase PO fluids Take meds as directed Return to ER if worse Prescriptions: Albuterol HFA [Ventolin HFA 90 mcg/actuation (8 g)] 2 puff IH [id number] #1 inhaler Azithromycin [Zithromax] 250 mg PO DAILY #6 tab predniSONE [Prednisone] 40 mg PO DAILY #8 tab Instructions: Acute Bronchitis (ED) - Clinical Impression Clinical Impression: Bronchitis
[2017-04-13 00:14] VITALS: BP 132/81; PULSE 74; RESP 16
[2017-04-13 02:09] VITALS: O2SAT 100
== END 2017-04-13 00:13 | disposition home or self-care (01) ==
LOC: C.ER 22:11
DX: J40 Bronchitis, not specified as acute or chronic (principal); I10 Essential (primary) hypertension; E11.9 Type 2 diabetes mellitus without complications

== ENCOUNTER 2017-06-02 19:14 | Emergency (ER) | payer MEDICAID ==
[2017-06-02 19:14] VITALS: BMI 35.4
== END 2017-06-02 21:25 | disposition left against medical advice (07) ==
LOC: C.ER 19:14
DX: Z02.89 Encounter for other administrative examinations (principal)

== ENCOUNTER 2017-07-03 14:04 | Emergency (ER) | payer MEDICAID ==
[2017-07-03 14:05] VITALS: BMI 34.0
[2017-07-03] MEDS ORDERED: cefTRIAXone (Rocephin) 250 mg Inj IM STA (15:52)
--- NOTE | 2017-07-03 16:06 | C.PDOC ---
History Of Present Illness 26 y/o female presents to the ER complaining of vaginal itching and white vaginal discharge. Patient states that she was seen at another medical institution and she was given medication. Patient states that she lost the medication bottle and she did not finish her course. The symptoms came back 2 days ago. Of note, patient has a history of insulin dependent diabetes which is not controlled. She was seen in [facility] and she was told to follow up with an scientific process operator. She has not seen an scientific process operator yet even though she knows she has high blood glucose levels in the 300-400 range. Time Seen by Provider: 07/03/17 14:20 Chief Complaint (Nursing): Female Genitourinary History Per: Patient History/Exam Limitations: no limitations Onset/Duration Of Symptoms: Days Current Symptoms Are (Timing): Still Present Severity: Moderate Past Medical History Vital Signs: Last Vital Signs Temp 98.4 F 07/03/17 18:15 Pulse 79 07/03/17 18:15 Resp 20 07/03/17 18:15 BP 125/81 07/03/17 18:15 Pulse Ox 98 07/03/17 21:02 - Medical History PMH: Anxiety, Bipolar Disorder, Depression, Diabetes, HTN Denies: Chronic Kidney Disease Surgical History: No Surg Hx - [facility] Procedures INJECT/INFUSE NEC (12/30/13) Family History: States: Diabetes (Grandmother) - Social History Hx Tobacco Use: No Hx Alcohol Use: No Hx Substance Use: No - Immunization History Hx Tetanus Toxoid Vaccination: No Hx Influenza Vaccination: Yes Hx Pneumococcal Vaccination: No Review Of Systems Except As Marked, All Systems Reviewed And Found Negative. Constitutional: Negative for: Fever, Chills Gastrointestinal: Negative for: Nausea, Vomiting, Diarrhea Genitourinary: Positive for: Vaginal Discharge Physical Exam - Physical Exam Appears: Non-toxic, No Acute Distress Skin: Normal Color, Warm, Dry Head: Atraumatic, Normacephalic Eye(s): bilateral: Normal Inspection Nose: Normal Oral Mucosa: Moist Neck: Supple Chest: Symmetrical Cardiovascular: Rhythm Regular Respiratory: Normal Breath Sounds, No Rales, No Rhonchi, No Wheezing Pelvic: Vaginal Discharge (extensive amount of whitish cottage-cheese like discharge), Other (cervix appears erythematous) Extremity: Normal ROM Neurological/Psych: Oriented x3, Normal Speech, Normal Motor, Normal Sensation ED Course And Treatment O2 Sat by Pulse Oximetry: 98 (RA) Pulse Ox Interpretation: Normal Progress Note: GC/Chlyamdia Test ordered and Vaginal Culture collected. Patient has been given Rocephin IM, Zithromax PO, and Diflucan PO. Patient's blood sugar levels were checked and her fingerstick was 378. Patient is being given sub q insulin. Disposition - Disposition Disposition: HOME/ ROUTINE Disposition Time: 16:03 Condition: STABLE Additional Instructions: Follow up with your PMD within 1-2 days. Reurn to ED if feel worse. Prescriptions: Fluconazole [Diflucan] 150 mg PO ONCE #1 tab Metronidazole [Metrogel-Vaginal] 1 ea VG QPM #7 gel Instructions: Vulvovaginal Yeast Infection, Metronidazole (Topical) Forms: [employer] (Yakut) - Clinical Impression Clinical Impression: Vaginitis, Diabetes mellitus - PA / NURSE GYNECOLOGY / Resident Statement MD/DO has reviewed & agrees with the documentation as recorded. - Scribe Statement The provider has reviewed the documentation as recorded by the Dejaibe Kevin Pierson Provider Attestation All medical record entries made by the Scribe were at my direction and personally dictated by me. I have reviewed the chart and agree that the record accurately reflects my personal performance of the history, physical exam, medical decision making, and the department course for this patient. I have also personally directed, reviewed, and agree with the discharge instructions and disposition.
[2017-07-03] MEDS ORDERED: cefTRIAXone 250 MG in Lidocaine Hydrochloride 0.9 ML IM ONE (16:30)
[2017-07-03] MEDS ORDERED: (Novolin 70/30) NPH/Regular 70/30 Units/ml 10 ml vial SC STA (16:38)
[2017-07-03] MEDS ORDERED: (Novolin 70/30) NPH/Regular 70/30 Units/ml 10 ml vial SC ONE (17:07)
[2017-07-03 18:15] VITALS: BP 125/81; PULSE 79; RESP 20; TEMP 98.4
[2017-07-03 18:17] VITALS: O2SAT 98
== END 2017-07-03 18:15 | disposition home or self-care (01) ==
LOC: C.ER 14:04
DX: N76.0 Acute vaginitis (principal); E11.65 Type 2 diabetes mellitus with hyperglycemia; Z79.4 Long term (current) use of insulin
CPT/HCPCS: 82948; 87070; 87491; 87591; 96372; 99284; J0696

== ENCOUNTER 2017-07-27 10:53 | Emergency (ER) | payer MEDICAID ==
[2017-07-27 10:53] VITALS: BMI 34.0
[2017-07-27 11:06] VITALS: TEMP 97.9
--- NOTE | 2017-07-27 11:51 | C.PDOC ---
History Of Present Illness 26 y/o female with hx iddm, c/o pain and lump in lateral left breast for months , with a burning sensation. pt denies any change in size of this lump. pt also c /o vaginal irritation and itching, denies vaginal discharge. no fevers or chills. denies dysuria, frequency and urgency. denies abdominal pain, n/v/d. pt has had unprotected sex recently. 1241 pm pt has been treated for sti in ed. ua shows large number white cells , will tx for uti as well, d/c pt with macrobid, monistat and diflucan with pmd and fisher pot outpt f/u, recommend outpatient breast sonogram. Time Seen by Provider: 07/27/17 11:08 Chief Complaint (Nursing): Breast Problem History Per: Patient History/Exam Limitations: no limitations Onset/Duration Of Symptoms: Days (several months) Current Symptoms Are (Timing): Still Present Severity: Mild Reports Recently: Seen In ED, Treated By A Physician Past Medical History Reviewed: Historical Data, Nursing Documentation, Vital Signs Vital Signs: Last Vital Signs Temp 97.9 F 07/27/17 11:01 Pulse 78 07/27/17 11:01 Resp 20 07/27/17 11:01 BP 126/78 07/27/17 11:01 Pulse Ox 99 07/27/17 12:48 - Medical History PMH: Anxiety, Bipolar Disorder, Depression, Diabetes, HTN Denies: Chronic Kidney Disease - [facility] Procedures INJECT/INFUSE NEC (12/30/13) Family History: States: Diabetes (Grandmother) - Social History Hx Tobacco Use: No Hx Alcohol Use: No Hx Substance Use: No - Immunization History Hx Tetanus Toxoid Vaccination: No Hx Influenza Vaccination: Yes Hx Pneumococcal Vaccination: No Review Of Systems Constitutional: Negative for: Fever, Chills Cardiovascular: Negative for: Chest Pain Respiratory: Negative for: Cough Gastrointestinal: Negative for: Nausea, Vomiting, Abdominal Pain Genitourinary: Positive for: Other (vaginal irritation). Negative for: Dysuria Skin: Negative for: Rash Neurological: Negative for: Weakness, Numbness Physical Exam - Physical Exam Appears: Non-toxic, No Acute Distress Skin: Warm, Dry Eye(s): bilateral: Normal Inspection Neck: Other (bilateral large pendulous breasts. no skin changes noted. pea sized tender mass palpated in left upper outer quadrant. chaperoned by SHAMIR Melgoza) Lymphatic: No Adenopathy (no axillary adenopathy palpated. ) Gastrointestinal/Abdominal: Bowel Sounds, Soft, No Tenderness Pelvic: Normal External Exam, Normal Bimanual Exam, Vaginal Discharge (beige, thick), No Cervical Motion Tenderness, No Cervix Open, No Adnexal Tenderness Neurological/Psych: Oriented x3, Normal Speech, Normal Cognition ED Course And Treatment O2 Sat by Pulse Oximetry: 99 Medical Decision Making Medical Decision Makin26 y/o female with dm, blood glucose in ed 148, with left breast mass unchanging for months and vaginal irritation and itching with discharge noted on exam. pt concerned about sti; gc/chlamydia collected and pt would like to be treated, and understands this tx would be prior to test results.. Disposition Counseled Patient/Family Regarding: Studies Performed, Diagnosis, Need For Followup, Rx Given - Disposition Referrals: Love Thorne MD [Medical Doctor] - Abigail Goodrich MD [Staff Provider] - Disposition: HOME/ ROUTINE Disposition Time: 12:44 Condition: GOOD Additional Instructions: Please use Monistat on external and internal vaginal area for itching. Take macrobid for urine infection until completed. Take diflucan after all antibiotics finished next week. Follow up with Dr Goodrich, or patient relations liaison of your choice, for annual exam including pap smear, as well as recommend breast ultrasound. Follow up with Dr Thorne and get Hemoglobin a1c checked and re- assess diabetes medications. Recommend no unprotected sex until test results are back. UIf you test positive for gonorrhea or chlamydia, your partner needs treatment as well. Prescriptions: Fluconazole [Diflucan] 150 mg PO ONCE #1 tab Miconazole/Cleanser 17 On Wipe [Monistat 7 Combination Pack] 1 each VG HS #1 kit Nitrofurantoin Macrocrystals [Macrobid] 100 mg PO BID #14 cap Instructions: Urinary Tract Infection, Adult (DC), Urinary Tract Infections in Adults Forms: [facility] (Mosotho), General Discharge Instructions - Clinical Impression Clinical Impression: Mass of breast, left, Vaginitis, UTI (urinary tract infection)
[2017-07-27 12:09] LABS: SQUAMOUS EPITHIAL 101 /hpf (0-5); URINE AMORPHOUS SEDIMENT RARE /ul (<OCC); URINE BACTERIA OCC (<OCC); URINE BILIRUBIN NEGATIVE (NEGATIVE); URINE BLOOD NEGATIVE (NEGATIVE); URINE CLARITY Hazy (Clear); URINE COLOR Yellow (YELLOW); URINE GLUCOSE (UA) 3+ mg/dL (Normal); URINE LEUKOCYTE ESTERASE 3+ Leu/uL (Negative); URINE PROTEIN 1+ mg/dL (NEGATIVE); URINE UROBILINOGEN NORMAL mg/dL (0.2-1.0)
[2017-07-27] MEDS ORDERED: cefTRIAXone (Rocephin) 250 mg Inj IM STA (12:09)
[2017-07-27 12:56] VITALS: BP 125/85; PULSE 68; RESP 18; O2SAT 97
== END 2017-07-27 12:56 | disposition home or self-care (01) ==
LOC: C.ER 10:53
DX: N63.20 Unspecified lump in the left breast, unspecified quadrant (principal); N76.0 Acute vaginitis; N39.0 Urinary tract infection, site not specified; E11.9 Type 2 diabetes mellitus without complications
CPT/HCPCS: 81001; 82948; 87086; 87181; 87491; 87591; 96372; 99284; J0696

== ENCOUNTER 2017-08-12 14:04 | Emergency (ER) | payer MEDICAID ==
[2017-08-12 14:04] VITALS: BMI 34.0
[2017-08-12] MEDS ORDERED: Sodium Chloride 0.9% 1,000 ML IV ONE (14:46)
--- NOTE | 2017-08-12 15:08 | C.PDOC ---
History Of Present Illness 27 y/o female, w/ PMhx of diabetes and morbid obesity, presents to the ER complaining of LLQ abdominal pain which started while she was working in the afternoon today. Patient states that she felt light-headed and about to " pass out." Patient denies having fever, chills, nausea, vomiting, and diarrhea. Time Seen by Provider: 08/12/17 14:34 Chief Complaint (Nursing): Abdominal Pain History Per: Patient History/Exam Limitations: no limitations Onset/Duration Of Symptoms: Hrs Current Symptoms Are (Timing): Still Present Severity: Moderate Location Of Pain/Discomfort: LLQ Associated Symptoms: denies: Fever, Chills, Nausea, Vomiting Past Medical History Reviewed: Historical Data, Nursing Documentation, Vital Signs Vital Signs: Last Vital Signs Temp 98.4 F 08/12/17 16:07 Pulse 78 08/12/17 16:07 Resp 18 08/12/17 16:07 BP 112/73 08/12/17 16:07 Pulse Ox 99 08/12/17 16:07 - Medical History PMH: Anxiety, Bipolar Disorder, Depression, Diabetes, HTN Denies: Chronic Kidney Disease - [facility] Procedures INJECT/INFUSE NEC (12/30/13) Family History: States: Diabetes (Grandmother) - Social History Hx Tobacco Use: No Hx Alcohol Use: No Hx Substance Use: No - Immunization History Hx Tetanus Toxoid Vaccination: No Hx Influenza Vaccination: Yes Hx Pneumococcal Vaccination: No Review Of Systems Except As Marked, All Systems Reviewed And Found Negative. Constitutional: Negative for: Fever, Chills Gastrointestinal: Positive for: Abdominal Pain (LLQ abdominal pain). Negative for: Nausea, Vomiting, Diarrhea Physical Exam - Physical Exam Appears: Non-toxic, No Acute Distress, Other (morbidly obese) Skin: Normal Color, Warm, Dry Head: Atraumatic, Normacephalic Eye(s): bilateral: Normal Inspection Nose: Normal Oral Mucosa: Moist Neck: Supple Chest: Symmetrical Cardiovascular: Rhythm Regular Respiratory: Normal Breath Sounds, No Rales, No Rhonchi, No Wheezing Gastrointestinal/Abdominal: Soft, Tenderness (LLQ tenderness) Neurological/Psych: Oriented x3, Normal Speech ED Course And Treatment - Laboratory Results Result Diagrams: 08/12/17 15:12 08/12/17 15:12 O2 Sat by Pulse Oximetry: 100 (RA) Pulse Ox Interpretation: Normal Medical Decision Making Medical Decision Making: ro metabolci infectious abdominal cardiac etiology Plan: --Labs --EKG --UA --IV Fluids --Tylenol PO 330: pt reassesed on phone in nad. abd soft no further ttp. state sfeels well for dc. labs ekg snr [address] t wave changes normal intervals. suspect ? vasovagal Disposition - Disposition Referrals: Eddie Rossi MD [Staff Provider] - [facility] [Outside] [facility] [Outside] Disposition: HOME/ ROUTINE Disposition Time: 15:36 Condition: STABLE Additional Instructions: please follow up with your doctor. return to er with worsening symptoms or concerns. Instructions: Acute Abdomen (Belly Pain), Near Fainting Forms: [employer] (Croatian) - Clinical Impression Clinical Impression: Abdominal pain - Scribe Statement The provider has reviewed the documentation as recorded by the Scribe Kevin Pierson Provider Attestation: All medical record entries made by the Scribe were at my direction and personally dictated by me. I have reviewed the chart and agree that the record accurately reflects my personal performance of the history, physical exam, medical decision making, and the department course for this patient. I have also personally directed, reviewed, and agree with the discharge instructions and disposition.
[2017-08-12 15:21] LABS: BASO % 0.5 % (0.0-2.0); EOS % 0.6 % (0.0-4.0); HEMOGLOBIN 14.5 g/dL (11.0-16.0); LYMPH # 1.5 K/uL (1.0-4.3); LYMPH % 28.5 % (20.0-40.0); MEAN CELL VOLUME 89.9 fL (81.0-99.0); MEAN CORPUSCULAR HEMOGLOBIN 31.3 pg (27.0-31.0); MEAN CORPUSCULAR HGB CONC 34.8 g/dL (33.0-37.0); MEAN PLATELET VOLUME 8.9 fL (7.2-11.7); MONO # 0.3 K/uL (0.0-0.8); MONO % 5.7 % (0.0-10.0); NEUT # 3.4 K/uL (1.8-7.0); NEUT % 64.7 % (50.0-75.0); RBC 4.64 Mil/uL (3.80-5.20); WHITE BLOOD COUNT 5.2 K/uL (4.8-10.8)
[2017-08-12 15:27] LABS: SQUAMOUS EPITHIAL 3 /hpf (0-5); URINE BILIRUBIN NEGATIVE (NEGATIVE); URINE BLOOD 3+ (NEGATIVE); URINE CLARITY Hazy (Clear); URINE COLOR Yellow (YELLOW); URINE GLUCOSE (UA) 3+ mg/dL (Normal); URINE LEUKOCYTE ESTERASE NEG Leu/uL (Negative); URINE PROTEIN NEGATIVE (NEGATIVE); URINE UROBILINOGEN NORMAL mg/dL (0.2-1.0)
[2017-08-12] MEDS ORDERED: Sodium Chloride 0.9% 1,000 ML ONE (15:28)
[2017-08-12 15:29] LABS: HCG,QUALITATIVE URINE NEGATIVE (NEGATIVE)
[2017-08-12 15:31] LABS: ALB/GLOB RATIO 1.2 (1.0-2.1); ALBUMIN 4.1 g/dL (3.5-5.0); ALT/SGPT 17 U/L (9-52); AST/SGOT 18 U/L (14-36); BLOOD UREA NITROGEN 10 mg/dL (7-17); CALCIUM 9.2 mg/dl (8.6-10.4); GFR AFRICAN-AMERICAN > 60; GFR NON-AFRICAN AMERICAN > 60; LIPASE 43 U/L (23-300)
[2017-08-12 16:08] VITALS: BP 112/73; PULSE 78; RESP 18; TEMP 98.4
[2017-08-12 19:59] VITALS: O2SAT 100
--- NOTE | 2017-08-13 12:53 | CARD ---
APPROVED REPORT EKG Measurement Heart [id number] <Conclusion> Normal sinus rhythm Normal ECG
== END 2017-08-12 16:18 | disposition home or self-care (01) ==
LOC: C.ER 14:04
DX: R10.32 Left lower quadrant pain (principal)
CPT/HCPCS: 80053; 81001; 82948; 83690; 84703; 85025; 93005; 96360; 99283; J7040

== ENCOUNTER 2017-10-16 18:33 | Emergency (ER) | payer MEDICAID ==
[2017-10-16 18:58] VITALS: BMI 33.1
[2017-10-16 19:17] LABS: HCG,QUALITATIVE URINE NEGATIVE (NEGATIVE)
[2017-10-16 19:19] LABS: SQUAMOUS EPITHIAL 36 /hpf (0-5); URINE BILIRUBIN NEGATIVE (NEGATIVE); URINE BLOOD 3+ (NEGATIVE); URINE CLARITY Hazy (Clear); URINE COLOR Yellow (YELLOW); URINE GLUCOSE (UA) NORMAL (Normal); URINE LEUKOCYTE ESTERASE 2+ Leu/uL (Negative); URINE PROTEIN NEGATIVE (NEGATIVE)
[2017-10-16] MEDS ORDERED: Sodium Chloride 0.9% 1,000 ML IV ONE (19:22)
[2017-10-16 19:48] LABS: BASO # 0.1 K/uL (0.0-0.2); EOS # 0.4 K/uL (0.0-0.7); EOS % 7.5 % (0.0-4.0); HEMOGLOBIN 12.2 g/dL (11.0-16.0); LYMPH # 2.7 K/uL (1.0-4.3); LYMPH % 51.9 % (20.0-40.0); MEAN CELL VOLUME 91.1 fL (81.0-99.0); MEAN CORPUSCULAR HEMOGLOBIN 31.5 pg (27.0-31.0); MEAN CORPUSCULAR HGB CONC 34.5 g/dL (33.0-37.0); MEAN PLATELET VOLUME 8.5 fL (7.2-11.7); MONO # 0.4 K/uL (0.0-0.8); MONO % 7.2 % (0.0-10.0); NEUT # 1.7 K/uL (1.8-7.0); NEUT % 32.4 % (50.0-75.0); NRBC % 0.1 % (0.0-2.0); RBC 3.89 Mil/uL (3.80-5.20); RED CELL DISTRIBUTION WIDTH 13.6 % (11.5-14.5); WHITE BLOOD COUNT 5.2 K/uL (4.8-10.8)
[2017-10-16] MEDS ORDERED: Sodium Chloride 0.9% 1,000 ML ONE (19:48)
[2017-10-16 20:00] LABS: ALB/GLOB RATIO 1.4 (1.0-2.1); ALBUMIN 3.9 g/dL (3.5-5.0); ALT/SGPT 20 U/L (9-52); AST/SGOT 15 U/L (14-36); BLOOD UREA NITROGEN 6 mg/dL (7-17); CALCIUM 8.8 mg/dl (8.6-10.4); GFR AFRICAN-AMERICAN > 60; GFR NON-AFRICAN AMERICAN > 60; LIPASE 28 U/L (23-300)
--- NOTE | 2017-10-16 20:19 | C.PDOC ---
History Of Present Illness 27 y/o female presents to the ER complaining of cramping LLQ abdominal pain which has been present for the past 1 week. Patient states that she has history of ovarian cysts. Of note ,patient had many prior presentations for similar symptoms in [facility]. Patient is also complaining of vaginal spotting today. She notes that her LMP finished last week. Time Seen by Provider: 10/16/17 19:21 Chief Complaint (Nursing): Abdominal Pain History Per: Patient History/Exam Limitations: no limitations Onset/Duration Of Symptoms: Days Current Symptoms Are (Timing): Still Present Severity: Moderate Location Of Pain/Discomfort: LLQ Past Medical History Reviewed: Historical Data, Nursing Documentation, Vital Signs Vital Signs: Last Vital Signs Temp 98.5 F 10/16/17 20:29 Pulse 65 10/16/17 20:29 Resp 18 10/16/17 20:29 BP 132/86 10/16/17 20:29 Pulse Ox 99 10/16/17 21:07 - Medical History PMH: Anxiety, Bipolar Disorder, Depression, Diabetes Denies: HTN (PT DENIES), Chronic Kidney Disease Surgical History: No Surg Hx - [facility] Procedures INJECT/INFUSE NEC (12/30/13) Family History: States: Diabetes (Grandmother) - Social History Hx Tobacco Use: No Hx Alcohol Use: No Hx Substance Use: No - Immunization History Hx Tetanus Toxoid Vaccination: No Hx Influenza Vaccination: Yes Hx Pneumococcal Vaccination: No Review Of Systems Except As Marked, All Systems Reviewed And Found Negative. Constitutional: Negative for: Fever, Chills Gastrointestinal: Positive for: Abdominal Pain. Negative for: Nausea, Vomiting , Diarrhea Genitourinary: Negative for: Dysuria, Hematuria Physical Exam - Physical Exam Appears: Non-toxic, No Acute Distress, Other (obese black female) Skin: Normal Color, Warm, Dry Head: Atraumatic, Normacephalic Eye(s): bilateral: Normal Inspection Nose: Normal Oral Mucosa: Moist Neck: Supple Chest: Symmetrical Cardiovascular: Rhythm Regular Respiratory: Normal Breath Sounds, No Rales, No Rhonchi, No Wheezing Gastrointestinal/Abdominal: Normal Exam, Soft, No Tenderness, No Guarding, No Rebound, Other ((-) Beaulieu's, (-) McBurney's) Extremity: Normal ROM Neurological/Psych: Oriented x3, Normal Speech ED Course And Treatment - Laboratory Results Result Diagrams: 10/16/17 19:39 10/16/17 19:39 Lab Interpretation: Normal (ua cw MP,) Urine POC: Negative O2 Sat by Pulse Oximetry: 99 (RA) Pulse Ox Interpretation: Normal - Radiology CXR: Interpreted by Me CXR Interpretation: Yes: No Acute Disease - Other Rad abd x 2 X-Ray: Interpreted by Me (+FOS, no obstr/FA) Reevaluation Time: 20:18 Reassessment Condition: Improved Medical Decision Making Medical Decision Making: acute on chronic constipation, due to DM and obesity no obst/preg Disposition Doctor Will See Patient In The: Office Counseled Patient/Family Regarding: Studies Performed, Diagnosis - Disposition Referrals: Love Thorne MD [Medical Doctor] - Disposition: HOME/ ROUTINE Disposition Time: 20:19 Condition: GOOD Additional Instructions: drink an entire bottle of laxative now (recommend Mag Citrate) re-evaluate your abdominal discomfort after using the bathroom 2-3 times. Diet and exercise changes. Occasional laxatives as needed. outpatient follow-up as needed. Instructions: Constipation, Adult (DC), Gas and Bloating (ED) Forms: [employer] (Malay) - Clinical Impression Clinical Impression: Colicky left lower quadrant pain - Scribe Statement The provider has reviewed the documentation as recorded by the Yan Pierson Provider Attestation: All medical record entries made by the Scribe were at my direction and personally dictated by me. I have reviewed the chart and agree that the record accurately reflects my personal performance of the history, physical exam, medical decision making, and the department course for this patient. I have also personally directed, reviewed, and agree with the discharge instructions and disposition.
[2017-10-16 20:30] VITALS: BP 132/86; PULSE 65; RESP 18; TEMP 98.5
[2017-10-16 21:00] VITALS: O2SAT 99
--- NOTE | 2017-10-17 08:47 | RAD ---
PROCEDURE: Radiographs of the chest and abdomen (obstructive series) HISTORY: Abdominal pain COMPARISON: No prior. TECHNIQUE: AP radiograph of the chest, with upright and supine radiographs of the abdomen. FINDINGS: CHEST: Lungs: The lungs are well inflated and clear. Cardiovascular: Normal size heart. No pulmonary vascular congestion. Pleura: No pleural fluid. No pneumothorax. Other findings: None. ABDOMEN AND PELVIS: Bowel: There is large amount of stool in the colon and rectum. There is gas in the sigmoid colon. No evidence of mechanical obstruction. Free air: None. Bones: Unremarkable. Other findings: None. IMPRESSION: Constipation. No evidence of mechanical bowel obstruction. Clear lungs.
== END 2017-10-16 20:30 | disposition home or self-care (01) ==
LOC: C.ER 18:33
DX: R10.32 Left lower quadrant pain (principal); E11.9 Type 2 diabetes mellitus without complications; F41.9 Anxiety disorder, unspecified
CPT/HCPCS: 74022; 80053; 81001; 82948; 83690; 84703; 85025; 96360; 99284; J7030

== ENCOUNTER 2017-11-01 22:12 | Emergency (ER) | payer MEDICAID ==
[2017-11-01 22:12] VITALS: BMI 33.1
[2017-11-01 22:23] VITALS: RESP 18
--- NOTE | 2017-11-01 22:38 | C.PDOC ---
History Of Present Illness The patient presents to the ED for evaluation of left lower abdominal pain which has been worsening over the last couple days. Patient was evaluated in this [facility] 10/16/17 for abdominal pain and was discharged with diagnosis of constipation. Patient states she is currently on her menstrual period. She denies fever, chills, nausea and vomiting. Time Seen by Provider: 11/01/17 22:37 Chief Complaint (Nursing): Abdominal Pain History Per: Patient History/Exam Limitations: no limitations Onset/Duration Of Symptoms: Days (2) Current Symptoms Are (Timing): Worse Severity: Mild Pain Scale Rating Of: 3 Location Of Pain/Discomfort: LLQ Radiation Of Pain To:: None Quality Of Discomfort: Dull, Aching, Cramping, "Pain" Associated Symptoms: denies: Fever, Chills, Nausea, Vomiting Exacerbating Factors: None Alleviating Factors: None Last Bowel Movement: Today Recent travel outside of the [place]: No Additional History Per: Patient Last Menstral Period: current Past Medical History Reviewed: Historical Data, Nursing Documentation, Vital Signs Vital Signs: Last Vital Signs Temp 98.7 F 11/02/17 00:08 Pulse 68 11/02/17 00:08 Resp 18 11/02/17 00:08 BP 106/71 11/02/17 00:08 Pulse Ox 99 11/02/17 00:08 - Medical History PMH: Anxiety, Bipolar Disorder, Depression, Diabetes Denies: HTN (PT DENIES), Chronic Kidney Disease Surgical History: No Surg Hx - [facility] Procedures INJECT/INFUSE NEC (12/30/13) Family History: States: Diabetes (Grandmother) - Social History Hx Tobacco Use: No Hx Alcohol Use: No Hx Substance Use: No - Immunization History Hx Tetanus Toxoid Vaccination: No Hx Influenza Vaccination: Yes Hx Pneumococcal Vaccination: No Review Of Systems Constitutional: Negative for: Fever, Chills Cardiovascular: Negative for: Chest Pain, Palpitations Respiratory: Negative for: Cough, Shortness of Breath Gastrointestinal: Positive for: Abdominal Pain (left lower quadrant ). Negative for: Nausea, Vomiting Skin: Negative for: Rash, Lesions, Jaundice, Bruising Neurological: Negative for: Weakness, Numbness Physical Exam - Physical Exam Appears: Non-toxic, No Acute Distress Skin: Warm, Dry Head: Normacephalic Eye(s): bilateral: Normal Inspection Oral Mucosa: Moist Neck: Supple Chest: Symmetrical, No Deformity, No Tenderness Cardiovascular: Rhythm Regular Respiratory: No Rales, No Rhonchi, No Wheezing Gastrointestinal/Abdominal: Soft, Tenderness (mild, left lower quadrant ), No Guarding, No Rebound, Other (obese) Back: Normal Inspection Extremity: Normal ROM, Capillary Refill (less than 2 seconds ) Neurological/Psych: Oriented x3 Gait: Steady ED Course And Treatment - Laboratory Results Result Diagrams: 11/01/17 23:45 11/01/17 23:45 O2 Sat by Pulse Oximetry: 99 (on RA) Pulse Ox Interpretation: Normal Progress Note: Urinalysis ordered. Toradol IVP given. Reevaluation Time: 02:03 Reassessment Condition: Improved Medical Decision Making Medical Decision Making: Upon provider reevaluation patient is feeling better, is medically stable, and requires no further treatment in the ED at this time. Patient will be discharged home with Rx for miralax, reglan. Counseling was provided and all questions were answered regarding diagnosis and need for follow up with dr walker. There is agreement to discharge plan. Return if symptoms persist or worsen. Disposition Counseled Patient/Family Regarding: Studies Performed, Diagnosis, Need For Followup, Rx Given - Disposition Referrals: Love Walker MD [Medical Doctor] - Disposition: HOME/ ROUTINE Disposition Time: 22:37 Condition: FAIR Additional Instructions: Please return if symptoms recur Prescriptions: Metoclopramide [Reglan] 1 tab PO TID PRN #25 tab PRN Reason: Nausea/Vomiting Polyethylene Glycol 3350 [Miralax] 17 gm PO DAILY #270 ml Instructions: Constipation, Adult (DC), Acute Abdomen (Belly Pain), Adult (DC) Forms: [employer] (Burmese) - Clinical Impression Clinical Impression: Constipation, Abdominal pain - Scribe Statement The provider has reviewed the documentation as recorded by the Scribe (Geena Goodrich) Provider Attestation: All medical record entries made by the Scribe were at my direction and personally dictated by me. I have reviewed the chart and agree that the record accurately reflects my personal performance of the history, physical exam, medical decision making, and the department course for this patient. I have also personally directed, reviewed, and agree with the discharge instructions and disposition.
[2017-11-01 22:46] LABS: HCG,QUALITATIVE URINE NEGATIVE (NEGATIVE)
[2017-11-01 22:50] LABS: SQUAMOUS EPITHIAL 9 /hpf (0-5); URINE BACTERIA RARE (<OCC); URINE BILIRUBIN NEGATIVE (NEGATIVE); URINE BLOOD 3+ (NEGATIVE); URINE CLARITY Hazy (Clear); URINE COLOR Yellow (YELLOW); URINE GLUCOSE (UA) NORMAL (Normal); URINE LEUKOCYTE ESTERASE TRACE Leu/uL (Negative); URINE PROTEIN NEGATIVE (NEGATIVE); URINE UROBILINOGEN NORMAL mg/dL (0.2-1.0)
[2017-11-01] MEDS ORDERED: Iodixanol 320 MG/ML 100 ML BOTTLE IV ONE (23:44)
[2017-11-01 23:50] LABS: BASO # 0.1 K/uL (0.0-0.2); BASO % 1.5 % (0.0-2.0); EOS # 0.2 K/uL (0.0-0.7); EOS % 3.7 % (0.0-4.0); HEMOGLOBIN 12.5 g/dL (11.0-16.0); LYMPH # 2.6 K/uL (1.0-4.3); LYMPH % 45.6 % (20.0-40.0); MEAN CELL VOLUME 91.3 fL (81.0-99.0); MEAN CORPUSCULAR HEMOGLOBIN 31.5 pg (27.0-31.0); MEAN CORPUSCULAR HGB CONC 34.5 g/dL (33.0-37.0); MEAN PLATELET VOLUME 9.3 fL (7.2-11.7); MONO # 0.4 K/uL (0.0-0.8); MONO % 6.9 % (0.0-10.0); NEUT # 2.4 K/uL (1.8-7.0); NEUT % 42.3 % (50.0-75.0); RBC 3.95 Mil/uL (3.80-5.20); RED CELL DISTRIBUTION WIDTH 13.4 % (11.5-14.5); WHITE BLOOD COUNT 5.6 K/uL (4.8-10.8)
[2017-11-01 23:58] LABS: INR 1.1; PROTHROMBIN TIME 11.6 SECONDS (9.7-12.2)
[2017-11-02] LABS: ALB/GLOB RATIO 1.5 (1.0-2.1); ALBUMIN 4.1 g/dL (3.5-5.0); ALT/SGPT 22 U/L (9-52); AST/SGOT 11 U/L (14-36); BLOOD UREA NITROGEN 9 mg/dL (7-17); CALCIUM 9.3 mg/dl (8.6-10.4); GFR AFRICAN-AMERICAN > 60; GFR NON-AFRICAN AMERICAN > 60; LIPASE 42 U/L (23-300)
[2017-11-02 02:21] VITALS: BP 126/86; PULSE 63; TEMP 98.3; O2SAT 100
--- NOTE | 2017-11-02 12:53 | CT ---
Date of service: 11/02/2017 PROCEDURE: CT Abdomen and Pelvis with contrast HISTORY: abd pain, left flank pain COMPARISON: Abdomen pelvis CT with contrast 09/25/2016. TECHNIQUE: Contrast dose: Visipaque 320, 100 cc Radiation dose: Total exam DLP = 1090.23 mGy-cm. This CT exam was performed using one or more of the following dose reduction techniques: Automated exposure control, adjustment of the mA and/or kV according to patient size, and/or use of iterative reconstruction technique. FINDINGS: LOWER THORAX: Stable cardiomegaly. No pleural or pericardial effusion. LIVER: Unremarkable. No gross lesion or ductal dilatation. GALLBLADDER AND BILE DUCTS: Unremarkable. PANCREAS: Unremarkable. No gross lesion or ductal dilatation. SPLEEN: Unremarkable. ADRENALS: Unremarkable. No mass. KIDNEYS AND URETERS: Unremarkable. No hydronephrosis. No solid mass. VASCULATURE: Unremarkable. No aortic aneurysm. BOWEL: The lack of oral contrast limits the interpretation of the gastrointestinal tract. The stomach appears grossly nonfocal, distended with retained food. No obstruction. No gross mural thickening. APPENDIX: Normal appendix. PERITONEUM: Unremarkable. No free fluid. No free air. LYMPH NODES: Unremarkable. No enlarged lymph nodes. BLADDER: Unremarkable. REPRODUCTIVE: Unremarkable. BONES: No acute fracture. OTHER FINDINGS: None. IMPRESSION: Unremarkable contrast enhanced CT of the abdomen and pelvis. Concordant preliminary report from [facility], 11/02/2017.
== END 2017-11-02 02:22 | disposition home or self-care (01) ==
LOC: C.ER 22:12
DX: K59.00 Constipation, unspecified (principal); R10.9 Unspecified abdominal pain; E11.9 Type 2 diabetes mellitus without complications
CPT/HCPCS: 74177; 80053; 81001; 83690; 84703; 85025; 85610; 85730; 96374; 99285; J1885; Q9967

== ENCOUNTER 2018-03-07 09:45 | Inpatient (IN) | payer MEDICAID ==
[2018-03-07 09:46] VITALS: BMI 33.1
--- NOTE | 2018-03-07 10:30 | C.PDOC ---
History Of Present Illness 27 year old female presents to the ED with generalized weakness, and fluctuating blood sugar. Patient noticed that her blood sugar going up and down from 600 to 120 despite taking her insulin, feeling weak, aggravated by heavy meal on . Denies any other complaints. Time Seen by Provider: 03/07/18 10:10 Chief Complaint (Nursing): High Blood Sugar History Per: Patient History/Exam Limitations: no limitations Onset/Duration Of Symptoms: Days Current Symptoms Are (Timing): Still Present Severity: Moderate Current Diabetic Medications: Insulin, Oral Medication Treatment Prior To Provider Evaluation: Accucheck Recent travel outside of the [place]: No Past Medical History Reviewed: Historical Data, Nursing Documentation, Vital Signs Vital Signs: Last Vital Signs Temp 97.8 F 03/07/18 09:52 Pulse 109 H 03/07/18 09:52 Resp 18 03/07/18 09:52 BP 136/81 03/07/18 09:52 Pulse Ox 100 03/07/18 09:52 - Medical History PMH: Anxiety, Bipolar Disorder, Depression, Diabetes Denies: Chronic Kidney Disease Comment Only: HTN (PT DENIES) Surgical History: No Surg Hx - [facility] Procedures INJECT/INFUSE NEC (12/30/13) Family History: States: Diabetes (Grandmother) - Social History Hx Tobacco Use: No Hx Alcohol Use: No Hx Substance Use: No - Immunization History Hx Tetanus Toxoid Vaccination: No Hx Influenza Vaccination: Yes Hx Pneumococcal Vaccination: No Review Of Systems Except As Marked, All Systems Reviewed And Found Negative. Constitutional: Positive for: Weakness, Other (low blood sugar). Negative for: Fever, Chills Gastrointestinal: Negative for: Nausea, Vomiting Physical Exam - Physical Exam Appears: Non-toxic Skin: Normal Color, No Rash Head: Atraumatic Eye(s): bilateral: Normal Inspection Nose: Normal Oral Mucosa: Moist Tongue: Normal Appearing Lips: Normal Appearing Teeth: Normal Dentition Gingiva: Normal Appearing Chest: Symmetrical Cardiovascular: Rhythm Regular Respiratory: Normal Breath Sounds Gastrointestinal/Abdominal: Normal Exam Back: Normal Inspection Extremity: Normal ROM Extremity: Bilateral: Atraumatic, Normal Color And Temperature, Normal ROM Pulses: Left Radial: Normal, Right Radial: Normal Neurological/Psych: Oriented x3, Normal Speech, Normal Cognition, Normal Cranial Nerves Gait: Steady ED Course And Treatment - Laboratory Results Result Diagrams: 03/07/18 11:17 03/07/18 11:17 O2 Sat by Pulse Oximetry: 100 (RA) Pulse Ox Interpretation: Normal - Physician Consult Information Time Consulting Physician Contacted: 13:10 Physician Contacted: Sofía Thorne Outcome Of Conversation: Recommended to admit patient to ICU Critical Care Time - Critical Care Note Total Time (in mins): 40 Documented critical care: time excludes all time spent performing seperately billable procedures. Medical Decision Making Medical Decision Making: Plan - Bloodwork - [address] Goodrich. Will accept patient under his service. Disposition Counseled Patient/Family Regarding: Diagnosis - Disposition Disposition: HOSPITALIZED Disposition Time: 13:29 Condition: GUARDED - POA Present On Arrival: None - Clinical Impression Clinical Impression: DKA (diabetic ketoacidoses) - Scribe Statement The provider has reviewed the documentation as recorded by the Scribe Shawna Arredondo All medical record entries made by the Scribe were at my direction and personally dictated by me. I have reviewed the chart and agree that the record accurately reflects my personal performance of the history, physical exam, medical decision making, and the department course for this patient. I have also personally directed, reviewed, and agree with the discharge instructions and disposition. Decision To Admit - Pt Status Changed To: Hospital Disposition Of: Inpatient - Admit Certification Admit to Inpatient:: After my assessment, the patient will require hospitalization for at least two midnights. This is because of the severity of symptoms shown, intensity of services needed, and/or the medical risk in this patient being treated as an outpatient. - InPatient: Physician Admission Certification: I certify that this patient requires 2 or more midnights of care for the following reason:: DKA - . Bed Request Type: ICU Admitting Physician: Sofía Thorne Patient Diagnosis: DKA (diabetic ketoacidoses)
[2018-03-07 11:15] LABS: SQUAMOUS EPITHIAL 4 /hpf (0-5); URINE BILIRUBIN NEGATIVE (NEGATIVE); URINE BLOOD NEGATIVE (NEGATIVE); URINE CLARITY Clear (Clear); URINE COLOR Straw (YELLOW); URINE GLUCOSE (UA) 3+ mg/dL (Normal); URINE LEUKOCYTE ESTERASE NEG Leu/uL (Negative); URINE PROTEIN 1+ mg/dL (NEGATIVE); URINE UROBILINOGEN NORMAL mg/dL (0.2-1.0)
[2018-03-07 11:27] LABS: BASO % 0.7 % (0.0-2.0); EOS % 0.2 % (0.0-4.0); HEMOGLOBIN 16.2 g/dL (11.0-16.0); LYMPH # 1.8 K/uL (1.0-4.3); LYMPH % 27.5 % (20.0-40.0); MEAN CELL VOLUME 91.1 fL (81.0-99.0); MEAN CORPUSCULAR HEMOGLOBIN 31.3 pg (27.0-31.0); MEAN CORPUSCULAR HGB CONC 34.4 g/dL (33.0-37.0); MEAN PLATELET VOLUME 10.1 fL (7.2-11.7); MONO # 0.4 K/uL (0.0-0.8); MONO % 6.6 % (0.0-10.0); NEUT # 4.2 K/uL (1.8-7.0); NRBC % 0.1 % (0.0-2.0); RBC 5.18 Mil/uL (3.80-5.20); RED CELL DISTRIBUTION WIDTH 13.2 % (11.5-14.5); WHITE BLOOD COUNT 6.5 K/uL (4.8-10.8)
[2018-03-07 11:35] LABS: ALB/GLOB RATIO 1.3 (1.0-2.1); ALT/SGPT 23 U/L (9-52); AST/SGOT 22 U/L (14-36); BLOOD UREA NITROGEN 11 mg/dL (7-17); CALCIUM 9.8 mg/dl (8.6-10.4); GFR NON-AFRICAN AMERICAN > 60
[2018-03-07] MEDS ORDERED: Sodium Chloride 0.9% 1,000 ML IV ONE (12:24)
[2018-03-07] MEDS ORDERED: Sodium Chloride 0.9% 1,000 ML ONE ×2 (12:38→14:53)
[2018-03-07 12:59] LABS: ABG ALLEN TEST PO; ARTERIAL BLOOD GAS HCO3 13.2 mmol/L (21-28); ARTERIAL BLOOD GAS HEMOGLOBIN 14.3 g/dL (11.7-17.4); ARTERIAL BLOOD GAS O2 SAT 99.5 % (95-98); ARTERIAL BLOOD GAS PCO2 27 mm/Hg (35-45); ARTERIAL BLOOD GAS PH 7.22 (7.35-7.45); ARTERIAL BLOOD GAS PO2 94 mm/Hg (80-100); ARTERIAL BLOOD GAS TCO2 11.9 mmol/L (22-28)
[2018-03-07] MEDS ORDERED: Sodium Chloride 0.9% 1,000 ML IV SCH (14:15)
[2018-03-07] MEDS ORDERED: (Novolog) Insulin Aspart, Recombinant 100 u/ml 10 ml vial SC SCH (15:00)
--- NOTE | 2018-03-07 15:14 | CP.PCM.CON ---
History of Present Illness - History of Present Illness History of Present Illness: 27 y/o female with pmx of DM, HTN, diabetic neuropathy presents to [facility] with c/o generalized malaise, denies any fevers, (+)alphonso 10 yrs old not sick,no recent travel, no URTI symptoms Pmx: DM Psurh Hx: micturation 10yrs agoa Sh: denies illicit drug use, (+) sextually active -works at [employer] AT [employer] Review of Systems - Constitutional Constitutional: As Per HPI - Cardiovascular Cardiovascular: absent: Chest Pain, Chest Pain with Activity, Edema, Pain Radiating to Arm/Neck/Jaw, Lightheadedness - Respiratory Respiratory: absent: Cough, Dyspnea, Hemoptysis, Snoring, Pain on Inspiration, Chest Congestion, Change in Mucous Color - Gastrointestinal Gastrointestinal: Early Satiety, Nausea. absent: Cramping, Dyspepsia, Dysphagia, Fecal Incontinence, Loose Stools, Temesmus, Vomiting - Genitourinary Genitourinary: absent: Difficulty Urinating, Pyuria, Urinary Incontinence, Urinary Frequency, Urinary Hesitance, Urinary Urgency - Reproductive: Female Additional comments: LMP Feb 28 - Neurological Additional comments: no nuchal rigidity Past Patient History - Infectious Disease Hx of Infectious Diseases: None - Tetanus Immunizations Tetanus Immunization: Unknown - Past Medical History & Family History Past Medical History?: Yes - Past Social History Smoking Status: Never Smoked - CARDIAC Hx Hypertension: (PT DENIES) - PULMONARY Hx Respiratory Disorders: No - NEUROLOGICAL Hx Neurological Disorder: No - HEENT Hx HEENT Problems: No - RENAL Hx Chronic Kidney Disease: No - ENDOCRINE/METABOLIC Hx Endocrine Disorders: Yes Hx Diabetes Mellitus Type 2: Yes - HEMATOLOGICAL/ONCOLOGICAL Hx Blood Disorders: No - INTEGUMENTARY Hx Dermatological Problems: No - MUSCULOSKELETAL/RHEUMATOLOGICAL Hx Musculoskeletal Disorders: No - GASTROINTESTINAL Hx Gastrointestinal Disorders: No - GENITOURINARY/GYNECOLOGICAL Hx Genitourinary Disorders: No - PSYCHIATRIC Hx Anxiety: Yes Hx Bipolar Disorder: Yes Hx Depression: Yes Hx Substance Use: No - SURGICAL HISTORY Hx Surgeries: No - ANESTHESIA Hx Anesthesia: No Hx Anesthesia Reactions: No Meds Allergies/Adverse Reactions: Allergies Allergy/AdvReac Type Severity Reaction Status Date / Time onion Allergy Intermediate ANAPHYLAXIS Verified 03/07/18 09:58 - Medications Medications: Current Medications Sodium Chloride (Sodium Chloride 0.9%) 1,000 mls @ 100 mls/hr IV .Q10H KATHERIN Last Admin: 03/07/18 14:55 Dose: 100 mls/hr Dextrose/Sodium Chloride (Dextrose 5%/0.45% Ns 1000 Ml) 1,000 mls @ 150 mls/hr IV .Q6H40M KATHERIN Insulin Aspart (Novolog) 0 unit SC Q4H KATHERIN; Protocol Insulin Detemir (Levemir) 15 unit SC BID KATHERIN Physical Exam - Eye Exam Eye Exam: EOMI Pupil Exam: NORMAL ACCOMODATION, PERRL - ENT Exam ENT Exam: Mucous Membranes Moist, Normal Exam - Respiratory Exam Respiratory Exam: Clear to Auscultation Bilateral, NORMAL BREATHING PATTERN - Cardiovascular Exam Cardiovascular Exam: REGULAR RHYTHM, +S1, +S2, +S4 - GI/Abdominal Exam GI & Abdominal Exam: Normal Bowel Sounds, Soft. absent: Diminished Bowel Sounds, Distended, Firm, Guarding, Hypoactive Bowel Sounds, Tenderness - Extremities Exam Extremities exam: Positive for: normal inspection - Neurological Exam Neurological exam: Alert, CN II-XII Intact, Oriented x3 - Skin Additional comments: non-blanching rash right upper chest neart site of EKG lead, non-blancing Results - Vital Signs Recent Vital Signs: Last Vital Signs Temp 97.8 F 03/07/18 09:52 Pulse 109 H 03/07/18 09:52 Resp 18 03/07/18 09:52 BP 136/81 03/07/18 09:52 Pulse Ox 100 03/07/18 14:23 - Labs Result Diagrams: 03/07/18 11:17 03/08/18 00:45 Labs: Laboratory Results - last 24 hr 03/07/18 03/07/18 03/07/18 09:56 11:03 11:17 WBC 6.5 RBC 5.18 Hgb 16.2 H D Hct 47.2 H MCV 91.1 MCH 31.3 H MCHC 34.4 RDW 13.2 Plt Count 285 MPV 10.1 Neut % (Auto) 65.0 Lymph % (Auto) 27.5 [place] % (Auto) 6.6 Eos % (Auto) 0.2 Baso % (Auto) 0.7 Neut # (Auto) 4.2 Lymph # (Auto) 1.8 [place] # (Auto) 0.4 Eos # (Auto) 0.0 Baso # (Auto) 0.0 Puncture Site pCO2 pO2 HCO3 ABG pH ABG Total CO2 ABG O2 Saturation ABG Base Excess ABG Hemoglobin ABG Carboxyhemoglobin POC ABG HHb (Measured) ABG Methemoglobin Wes Test A-a O2 Difference Respiratory Index Hgb O2 Saturation FiO2 Sodium Potassium Chloride Carbon Dioxide Anion Gap BUN Creatinine Est GFR ( Amer) Est GFR (Non-Af Amer) POC Glucose (mg/dL) 133 H Random Glucose Calcium Total Bilirubin AST ALT Alkaline Phosphatase Total Protein Albumin Globulin Albumin/Globulin Ratio Urine Color Straw Urine Clarity Clear Urine pH 5.0 Ur Specific [place] 1.027 Urine Protein 1+ H Urine Glucose (UA) 3+ H Urine Ketones 2+ H Urine Blood Negative Urine Nitrate Negative Urine Bilirubin Negative Urine Urobilinogen Normal Ur Leukocyte Esterase Neg Urine WBC (Auto) 3 Urine RBC (Auto) 1 Ur Squamous Epith Cells 4 B-Hydroxybutyrate 03/07/18 03/07/18 03/07/18 11:17 12:34 12:56 WBC RBC Hgb Hct MCV MCH MCHC RDW Plt Count MPV Neut % (Auto) Lymph % (Auto) [place] % (Auto) Eos % (Auto) Baso % (Auto) Neut # (Auto) Lymph # (Auto) [place] # (Auto) Eos # (Auto) Baso # (Auto) Puncture Site Rra pCO2 27 L pO2 94 HCO3 13.2 L ABG pH 7.22 L ABG Total CO2 11.9 L ABG O2 Saturation 99.5 H ABG Base Excess -15.0 L ABG Hemoglobin 14.3 ABG Carboxyhemoglobin 2.2 H POC ABG HHb (Measured) 0.5 ABG Methemoglobin 0.6 Wes Test Po A-a O2 Difference 22.0 Respiratory Index 0.2 Hgb O2 Saturation 96.7 FiO2 21.0 Sodium 139 Potassium 4.4 Chloride 102 Carbon Dioxide 14 L Anion Gap 27 H BUN 11 Creatinine 0.8 Est GFR ( Amer) > 60 Est GFR (Non-Af Amer) > 60 POC Glucose (mg/dL) Random Glucose 136 H Calcium 9.8 Total Bilirubin 0.7 AST 22 ALT 23 Alkaline Phosphatase 108 Total Protein 8.8 H Albumin 5.0 D Globulin 3.8 Albumin/Globulin Ratio 1.3 Urine Color Urine Clarity Urine pH Ur Specific [place] Urine Protein Urine Glucose (UA) Urine Ketones Urine Blood Urine Nitrate Urine Bilirubin Urine Urobilinogen Ur Leukocyte Esterase Urine WBC (Auto) Urine RBC (Auto) Ur Squamous Epith Cells B-Hydroxybutyrate 5.61 H 03/07/18 14:56 WBC RBC Hgb Hct MCV MCH MCHC RDW Plt Count MPV Neut % (Auto) Lymph % (Auto) [place] % (Auto) Eos % (Auto) Baso % (Auto) Neut # (Auto) Lymph # (Auto) [place] # (Auto) Eos # (Auto) Baso # (Auto) Puncture Site pCO2 pO2 HCO3 ABG pH ABG Total CO2 ABG O2 Saturation ABG Base Excess ABG Hemoglobin ABG Carboxyhemoglobin POC ABG HHb (Measured) ABG Methemoglobin Wes Test A-a O2 Difference Respiratory Index Hgb O2 Saturation FiO2 Sodium Potassium Chloride Carbon Dioxide Anion Gap BUN Creatinine Est GFR ( Amer) Est GFR (Non-Af Amer) POC Glucose (mg/dL) 292 H Random Glucose Calcium Total Bilirubin AST ALT Alkaline Phosphatase Total Protein Albumin Globulin Albumin/Globulin Ratio Urine Color Urine Clarity Urine pH Ur Specific [place] Urine Protein Urine Glucose (UA) Urine Ketones Urine Blood Urine Nitrate Urine Bilirubin Urine Urobilinogen Ur Leukocyte Esterase Urine WBC (Auto) Urine RBC (Auto) Ur Squamous Epith Cells B-Hydroxybutyrate Assessment & Plan - Assessment and Plan (Free Text) Assessment: DKA: contonue IV D5/0.45 NS + insulin, + levemir, repeat cmp/mag/phos -malaise+ sextually active, check HIV, RPR and G/C UA -PAtietn provided verbal conset for HIV testing -Patient's HBA1c, TSH and repeat chemistry pending continue dvt/pud ppx if repeat chemistry reveals closure of anion gap, patient may not need insulin ggt. f/u repeat chemistry HIV/TSH/ Patient remasin hemodynamically stable Addendum 03/08/2018 2:55AM: Anion Gap closed -continue home dose sub q insulin -Please call ICU if patient's clinical status worsens. - Date & Time Date: 03/07/18 Time: 15:18
--- NOTE | 2018-03-07 15:41 | RAD ---
Date of service: 03/07/2018 PROCEDURE: CHEST RADIOGRAPH, 1 VIEW HISTORY: admit COMPARISON: 04/03/2017 FINDINGS: LUNGS: Clear. PLEURA: No pneumothorax or pleural fluid seen. CARDIOVASCULAR: No aortic atherosclerotic calcification present. Normal. OSSEOUS STRUCTURES: No significant abnormalities. VISUALIZED UPPER ABDOMEN: Normal. OTHER FINDINGS: None. IMPRESSION: No active disease.
[2018-03-07] MEDS ORDERED: (Novolog) Insulin Aspart, Recombinant 100 u/ml 10 ml vial ONE (15:45)
[2018-03-07 15:58] LABS: ALB/GLOB RATIO 1.2 (1.0-2.1); ALBUMIN 4.1 g/dL (3.5-5.0); ALT/SGPT 20 U/L (9-52); AMYLASE 74 U/L (30-110); AST/SGOT 18 U/L (14-36); BLOOD UREA NITROGEN 11 mg/dL (7-17); CALCIUM 8.9 mg/dl (8.6-10.4); GFR NON-AFRICAN AMERICAN > 60; LIPASE 42 U/L (23-300)
[2018-03-07] MEDS ORDERED: Insulin Human Regular 100 UNIT in Sodium Chloride 0.9% 99 ML IV SCH (16:45)
[2018-03-07] MEDS ORDERED: Insulin Detemir 100 units/ml Vial (Levemir) SC SCH (18:00)
[2018-03-07] MEDS: Dextrose 5%/0.45% NS 1,000 ML IV SCH ×2 (18:07→22:02)
[2018-03-07] MEDS ORDERED: Apap-Butalbital-Caffeine 325-50-40mg Tab PO STA (18:09)
[2018-03-07] MEDS ORDERED: Apap-Butalbital-Caffeine 325-50-40mg Tab ONE (18:17)
[2018-03-07 19:49] LABS: BARBITURATES, UR NEGATIVE (NEGATIVE); BENZODIAZEPINES, UR NEGATIVE (NEGATIVE); OPIATES, UR NEGATIVE (NEGATIVE); PHENCYCLIDINE, UR NEGATIVE (NEGATIVE)
[2018-03-08 01:13] LABS: ALB/GLOB RATIO 1.3 (1.0-2.1); ALBUMIN 3.9 g/dL (3.5-5.0); ALT/SGPT 20 U/L (9-52); AST/SGOT 18 U/L (14-36); BLOOD UREA NITROGEN 8 mg/dL (7-17); CALCIUM 8.5 mg/dl (8.6-10.4); GFR NON-AFRICAN AMERICAN > 60
[2018-03-08] MEDS ORDERED: Sodium Chloride 0.9% 1,000 ML IV SCH (01:45)
[2018-03-08 05:17] LABS: BASO % 0.6 % (0.0-2.0); EOS % 0.9 % (0.0-4.0); HEMOGLOBIN 14.1 g/dL (11.0-16.0); LYMPH % 40.3 % (20.0-40.0); MEAN CELL VOLUME 89.8 fL (81.0-99.0); MEAN CORPUSCULAR HEMOGLOBIN 30.5 pg (27.0-31.0); MEAN PLATELET VOLUME 9.9 fL (7.2-11.7); MONO # 0.5 K/uL (0.0-0.8); NEUT # 2.5 K/uL (1.8-7.0); NEUT % 49.2 % (50.0-75.0); NRBC % 0.1 % (0.0-2.0); RBC 4.61 Mil/uL (3.80-5.20); WHITE BLOOD COUNT 5.1 K/uL (4.8-10.8)
[2018-03-08 05:54] LABS: ALB/GLOB RATIO 1.3 (1.0-2.1); ALT/SGPT 24 U/L (9-52); AST/SGOT 14 U/L (14-36); BLOOD UREA NITROGEN 6 mg/dL (7-17); CALCIUM 8.6 mg/dl (8.6-10.4); GFR NON-AFRICAN AMERICAN > 60
[2018-03-08] MEDS ORDERED: Insulin Detemir 100 units/ml Vial (Levemir) SC SCH (08:00)
[2018-03-08] MEDS: (Novolog) Insulin Aspart, Recombinant 100 u/ml 10 ml vial SC SCH ×3 (08:08→18:00)
[2018-03-08 08:54] VITALS: RESP 20
[2018-03-08] MEDS: Insulin Detemir 100 units/ml Vial (Levemir) SC SCH ×2 (11:59→22:51)
[2018-03-08 17:26] LABS: ALB/GLOB RATIO 1.2 (1.0-2.1); ALBUMIN 4.1 g/dL (3.5-5.0); ALT/SGPT 24 U/L (9-52); AST/SGOT 35 U/L (14-36); BLOOD UREA NITROGEN 5 mg/dL (7-17); CALCIUM 9.3 mg/dl (8.6-10.4); GFR NON-AFRICAN AMERICAN > 60
[2018-03-08] MEDS ORDERED: DiphenhydrAMINE 50 mg/ml Inj IVP STA (19:21)
[2018-03-08] MEDS ORDERED: DiphenhydrAMINE 50 mg/ml Inj ONE (19:27)
[2018-03-09 07:44] VITALS: BP 113/72; PULSE 80; TEMP 97.9; O2SAT 98
[2018-03-09] MEDS: (Novolog) Insulin Aspart, Recombinant 100 u/ml 10 ml vial SC SCH ×2 (08:30→12:30)
[2018-03-09] MEDS ORDERED: Aluminum Hydroxide/Magnesium Hydroxide Susp (30 mL) PO ONE (10:00)
[2018-03-09] MEDS: Insulin Detemir 100 units/ml Vial (Levemir) SC SCH (10:34)
--- NOTE | 2018-03-09 10:52 | RAD ---
Date of service: 03/09/2018 PROCEDURE: Right Knee Radiographs. HISTORY: Pain and swelling COMPARISON: None. FINDINGS: BONES: Normal. No fracture. Suspect the small elliptical shaped bone island or osteoma within the distal femoral diametaphysis. JOINTS: Normal. No osteoarthritis. JOINT EFFUSION: None. OTHER FINDINGS: None. IMPRESSION: No evidence of acute displaced fracture nor dislocation.
--- NOTE | 2018-03-09 14:12 | CP.PCM.PN ---
Subjective - Date & Time of Evaluation Date of Evaluation: 03/09/18 Time of Evaluation: 14:10 - Subjective Subjective: PGY3 Note for Dr. Thorne This patient was seen and examined at bedside this AM; denies any acute complaints or overnight events. Denies all symptoms. Objective - Vital Signs/Intake and Output Vital Signs (last 24 hours): Temp Pulse Resp BP Pulse Ox 97.9 F 80 20 113/72 98 03/09/18 07:44 03/09/18 07:44 03/09/18 07:44 03/09/18 07:44 03/09/18 07:44 - Labs Labs: 03/08/18 05:10 03/08/18 13:37 - Constitutional Appears: Well, Non-toxic - Head Exam Head Exam: ATRAUMATIC, NORMAL INSPECTION - Eye Exam Eye Exam: EOMI, Normal appearance, PERRL Pupil Exam: NORMAL ACCOMODATION, PERRL - ENT Exam ENT Exam: Mucous Membranes Moist - Neck Exam Neck Exam: Full ROM. absent: Lymphadenopathy - Respiratory Exam Respiratory Exam: Clear to Ausculation Bilateral, NORMAL BREATHING PATTERN. abs ent: Rales, Rhonchi, Wheezes - Cardiovascular Exam Cardiovascular Exam: REGULAR RHYTHM, RRR, +S1, +S2. absent: Gallop, JVD, Rubs, +S4, Murmur - GI/Abdominal Exam GI & Abdominal Exam: Soft, Normal Bowel Sounds. absent: Guarding, Rigid, Tenderness, Organomegaly, Pulsatile Mass, Rebound - Extremities Exam Extremities Exam: Full ROM, Normal Capillary Refill, Normal Inspection. absent: Calf Tenderness, Pedal Edema - Back Exam Back Exam: NORMAL INSPECTION. absent: CVA tenderness (L), CVA tenderness (R) - Neurological Exam Neurological Exam: Alert, Awake, CN II-XII Intact, Oriented x3 - Psychiatric Exam Psychiatric exam: Normal Affect - Skin Skin Exam: Warm Assessment and Plan - Assessment and Plan (Free Text) Assessment: 27yo F admitted for Elevated blood sugar Hyperglycemia; Type 1 DM -patients hyperglycemia resolved -patient is to continue her home insulin, as instructed, as well as her januvia -patient to followup with PCP, production control expert, and Behavioral Analyst on discharge -added metformin as it does have morbidity/mortality benefit in all diabetics; however patient states it makes her stomach upset and she does not wish to take it -patient states he is hesitant to stick herself because it makes her nervous; patient would be eligible for insulin pump however this needs to be set up as an outpatient; likely element of non-compliance The patient is stable for d/c as per Dr. Fadumo Junior PGY3
--- NOTE | 2018-03-09 20:56 | CARD ---
APPROVED REPORT Date of service: 03/07/2018 EKG Measurement Heart [id number] <Conclusion> Normal sinus rhythm Nonspecific ST abnormality Abnormal ECG
[2018-03-09] MEDS ORDERED: Home Med 1 UNIT (Empagliflozin [Jardiance] 10 MG) PO SCH (22:00)
== END 2018-03-09 13:28 | disposition home or self-care (01) | DRG 295 ==
LOC: C.ER 09:45 → C.9E 13:22 → C.5S 03-08 06:13
PROVIDERS: ADMIT Internal Medicine Pulmonary Disease; ATTEND Internal Medicine Pulmonary Disease
DX: E10.10 Type 1 diabetes mellitus with ketoacidosis without coma (principal); E10.40 Type 1 diabetes mellitus with diabetic neuropathy, unspecified; I10 Essential (primary) hypertension; K30 Functional dyspepsia; F31.9 Bipolar disorder, unspecified; Z79.4 Long term (current) use of insulin; Z83.3 Family history of diabetes mellitus

== ENCOUNTER 2018-06-29 18:11 | Emergency (ER) | payer MEDICAID ==
[2018-06-29 18:12] VITALS: BMI 33.1
[2018-06-29 18:49] VITALS: BP 110/77; PULSE 85; RESP 18; TEMP 98.9; O2SAT 100
--- NOTE | 2018-06-29 20:09 | C.PDOC ---
History Of Present Illness Patient is a 27 year old female who presents to the ED c/o nasal bone soreness for the past 3 days that has caused her to have headaches. Patient states that she does not remember hitting herself and has been taking 800mg Ibuprofen without relief. She denies any nasal congestion, cough, nasal discharge, change in vision, eye pain, rash, bumps, or fever. Time Seen by Provider: 06/29/18 18:44 Chief Complaint (Nursing): Headache History Per: Patient History/Exam Limitations: no limitations Onset/Duration Of Symptoms: Days (3) Current Symptoms Are (Timing): Still Present Quality: "Pain" Associated Symptoms: denies: Photophobia, Blurred Vision Recent travel outside of the [place]: No Additional History Per: Patient Past Medical History Reviewed: Historical Data, Nursing Documentation, Vital Signs Vital Signs: Last Vital Signs Temp 98.9 F 06/29/18 18:48 Pulse 85 06/29/18 18:48 Resp 18 06/29/18 18:48 BP 110/77 06/29/18 18:48 Pulse Ox 100 06/29/18 18:48 - Medical History PMH: Anxiety, Bipolar Disorder, Depression, Diabetes Denies: Chronic Kidney Disease Comment Only: HTN (PT DENIES) Surgical History: No Surg Hx - [facility] Procedures INJECT/INFUSE NEC (12/30/13) Family History: States: Diabetes (Grandmother) - Social History Hx Tobacco Use: No Hx Alcohol Use: No Hx Substance Use: No - Immunization History Hx Tetanus Toxoid Vaccination: No Hx Influenza Vaccination: Yes Hx Pneumococcal Vaccination: No Review Of Systems Constitutional: Negative for: Fever Eyes: Negative for: Vision Change ENT: Positive for: Nose Pain. Negative for: Ear Pain, Nose Discharge, Nose Congestion Respiratory: Negative for: Cough Skin: Negative for: Rash, Other (bumps ) Neurological: Positive for: Headache Physical Exam - Physical Exam Appears: Non-toxic, No Acute Distress Skin: Normal Color, Warm, Dry, No Rash Head: Atraumatic, Normacephalic Eye(s): bilateral: Normal Inspection, PERRL, EOMI Nose: No Discharge, No Epistaxis, Tenderness (to the maxillary sinuses and nasal bridge), No Septal Hematoma Oral Mucosa: Moist Tongue: Normal Appearing, No Swelling Lips: Normal Appearing, No Swelling Throat: Normal, No Erythema Neck: Normal ROM, Supple Lymphatic: Normal Exam Chest: Symmetrical, No Tenderness Cardiovascular: Rhythm Regular, No Friction Rub, No Murmur Respiratory: Normal Breath Sounds, No Rales, No Rhonchi, No Wheezing Gastrointestinal/Abdominal: Soft, No Tenderness Back: Normal Inspection, No CVA Tenderness Extremity: Normal ROM, No Swelling Neurological/Psych: Oriented x3, Normal Speech, Normal Cognition Gait: Steady ED Course And Treatment O2 Sat by Pulse Oximetry: 100 (on RA) Pulse Ox Interpretation: Normal Medical Decision Making Medical Decision Making: Plan: Xray Nasal Bones Xrays are negative. This is most likely sinus pressure, no history of trauma. Disposition - Disposition Referrals: Luis Arce MD [Staff Provider] - Disposition: HOME/ ROUTINE Disposition Time: 20:24 Condition: STABLE Additional Instructions: Follow up with the medical doctor within 1-2 days. Return if worsened. Prescriptions: Loratadine [Claritin] 10 mg PO DAILY #10 tab Naproxen [Naprosyn] 500 mg PO BID #20 tab predniSONE [Prednisone] 20 mg PO BID #10 tab Instructions: Sinus Headache (DC) Forms: [employer] (U[place]), Work Excuse - Clinical Impression Clinical Impression: Sinus pressure, Headache - PA / TISSUE SPECIALIST / Resident Statement MD/DO has examined the patient and agrees with the treatment plan. - Scribe Statement The provider has reviewed the documentation as recorded by the Yan Carrasco All medical record entries made by the Scribe were at my direction and personally dictated by me. I have reviewed the chart and agree that the record accurately reflects my personal performance of the history, physical exam, medical decision making, and the department course for this patient. I have also personally directed, reviewed, and agree with the discharge instructions and disposition.
--- NOTE | 2018-06-30 09:38 | RAD ---
Date of service: 06/29/2018 PROCEDURE: Radiographs of Nasal Bones HISTORY: pain in the nasal bridge COMPARISON: None available. TECHNIQUE: Frontal and lateral radiographs of the nasal bones. FINDINGS: No fracture of nasal bones visualized. No destructive lesion. IMPRESSION: No nasal bone fracture visualized.
== END 2018-06-29 20:50 | disposition home or self-care (01) ==
LOC: C.ER 18:11
DX: R51 Headache (principal); J34.9 Unspecified disorder of nose and nasal sinuses; E11.9 Type 2 diabetes mellitus without complications